=== PATIENT | male | born 1925 | race Caucasian/White ===

== ENCOUNTER 2016-02-23 11:07 | Observation (INO) | payer OTHER ==
[~2016-02-23] VITALS: Ht 172.7 cm; Wt 61.1 kg
[2016-02-23] MEDS ORDERED: SOD CHLORIDE 0.9% 1,000 ML IV STA (11:17)
[2016-02-23] MEDS ORDERED: ONDANSETRON 4 MG INJ IV STA (11:21)
[2016-02-23] MEDS ORDERED: morphine 2 MG INJ IV ONE (11:30)
--- NOTE | 2016-02-23 11:54 | RADRPT ---
PROCEDURE: US Lower extremity Venous. CLINICAL INDICATION: Left leg pain TECHNIQUE: Multiple sonographic images of the left lower extremity deep venous system was obtained utilizing grayscale, color-flow, compressive sonography and doppler imaging with augmentation. The images were reviewed on a PACS workstation. COMPARISON: None. FINDINGS: There is normal compressibility and flow within the left common femoral, superficial femoral, potter or ceramic artist ior tibial, peroneal and popliteal veins. There is a heterogeneous 4.5 x 1.5 x 2.4 cm structure in the popliteal fossa. There are irregular e chogenic borders and is cystic center. RPTAT: AA IMPRESSION: No sonographic evidence for deep venous thrombosis. Complex solid and cystic mass in the left popliteal fossa. Further evaluation with a CT with contra st is recommended. .Ed Ellis MD, Date Time Electronically viewed and signed by .Ed Ellis MD, MD on 02/23/2016 11:54 .S/
--- NOTE | 2016-02-23 12:10 | RADRPT ---
PROCEDURE: CT Brain without. CLINICAL INDICATION: Altered mental status. TECHNIQUE: A CT of the brain was performed on multidetector high-resolution CT scanner utilizing a xial sections from the skull base through the vertex without contrast. The scan was reviewed in sof t tissue brain and high frequency resolution bone algorithm windows. Images were reviewed on a high -resolution PACS workstation. One or more the following does reduction techniques were utilized: Aut omated exposure control, adjustment of the mA/ or kV according to patient's size, or use of iterativ e reconstruction technique. The exam CTDI = 44.90 mGy and the DLP = 720.23 mGy-cm. COMPARISON: None available. FINDINGS: The ventricles and sulci are mildly to moderately prominent indicative of volume loss. There is no i ntracranial hemorrhage, mass effect or midline shift. No abnormal intra-axial or extra-axial fluid collections are seen. The gomez/white matter differentiation is preserved. There are mild to moderate scattered foci of hypoattenuation in the white matter, which are nonspeci fic in etiology but likely reflect chronic small vessel ischemic changes. There are mild to moderat e intracranial vascular calcifications consistent with atherosclerosis. The visualized paranasal sin uses are essentially clear. IMPRESSION: 1. No acute intracranial hemorrhage, transcortical infarction or mass effect. 2. Mild to moderate intracranial atherosclerosis and chronic small vessel ischemic changes. 3. Mild to moderate generalized cerebral volume loss. RPTAT: HH .Carlos Jolley MD, MD Date Time Electronically viewed and signed by .Carlos Jolley MD, MD on 02/23/2016 12:10 .N/
[2016-02-23 12:27] LABS: ALBUMIN 3.6 g/dl (3.3-4.9)
[2016-02-23 12:28] LABS: POTASSIUM 4.1 mmol/L (3.5-5.1)
[2016-02-23 12:30] LABS: ALBUMIN/GLOBULIN RATIO 1.12; BILIRUBIN,INDIRECT 0.4 mg/dl (0-1.1); BILIRUBIN,TOTAL 0.4 mg/dl (0.2-1.3); CREATININE 1.08 mg/dl (0.61-1.24); TOTAL PROTEIN 6.8 g/dl (6.1-8.1)
[2016-02-23 12:31] LABS: CALCIUM 9.2 mg/dl (8.4-10.2)
[2016-02-23 12:43] LABS: TROPONIN-I 0.026 ng/ml (0.00-0.12)
[2016-02-23 12:50] LABS: BASOPHILS % 0.5 % (0.0-2.0); CONDITION 1; EOSINOPHILS # 0.1 10^3/ul (0.0-0.5); EOSINOPHILS % 2.1 % (0.0-7.0); HEMATOCRIT 39.1 % (42.0-52.0); HEMOGLOBIN 13.2 g/dl (14.0-18.0); LYMPHOCYTES # 0.6 10^3/ul (0.8-2.9); LYMPHOCYTES % 14.1 % (15.0-51.0); MEAN CORPUSCULAR HEMOGLOBIN 30.8 pg (29.0-33.0); MEAN CORPUSCULAR HGB CONC 33.8 g/dl (32.0-37.0); MEAN PLATELET VOLUME 7.6 fl (7.4-10.4); MONOCYTE # 0.4 10^3/ul (0.3-0.9); MONOCYTES % 9.1 % (0.0-11.0); NEUTROPHIL # 3.3 10^3/ul (1.6-7.5); NEUTROPHILS % 74.2 % (39.0-77.0); PLATELET COUNT 207 10^3/UL (140-440); RED BLOOD COUNT 4.29 10^6/ul (4.70-6.10); RED CELL DISTRIBUTION WIDTH 13.6 % (11.5-14.5); UNCORRECTED WBC 4.5 10^3/ul (4.8-10.8); WHITE BLOOD COUNT 4.5 10^3/ul (4.8-10.8)
[2016-02-23] MEDS ORDERED: IODIXANOL LOCM 100 ML BTL ONE (13:27)
[2016-02-23] MEDS ORDERED: SOD CHLORIDE 0.9% 100 ML ONE (13:27)
[2016-02-23 13:42] LABS: ADD UMIC NO; URINE BILIRUBIN (Dip) NEGATIVE (NEGATIVE); URINE BLOOD (Dip) NEGATIVE (NEGATIVE); URINE COLOR LT. YELLOW (YELLOW); URINE GLUCOSE (Dip) NEGATIVE (NEGATIVE); URINE KETONES (Dip) NEGATIVE (NEGATIVE); URINE LEUKOCYTE ESTERASE (Dip) NEGATIVE (NEGATIVE); URINE NITRITE (Dip) NEGATIVE (NEGATIVE); URINE TOTAL PROTEIN (Dip) NEGATIVE (NEGATIVE); URINE UROBILINOGEN (Dip) 0.2 E.U./dL (0.1-1.0)
--- NOTE | 2016-02-23 13:42 | ERA ---
ER Documentation Chief Complaint Date/Time DATE: 02/23/16 TIME: 13:34 Chief Complaint BROUGHT IN VIA EMS FROM SNF DUE TO LEFT LEG WEAKNESS HPI Patient is a very pleasant 89-year-old male who reports his left lower extremity being weak since last night. He reports also that he had these episodes for the left lower extremity which shake uncontrollably. He states this is never happened to him before. He says the left leg is sore and painful. He denies any trauma to the leg. He denies any fevers, swelling of the extremity, or rashes. He says he is normally ambulatory however he has been unable to bear weight on the leg secondary to pain and weakness this morning. Patient denies any headache or visual changes, chest pain, shortness of breath, fever, coughing, congestion, nausea, vomiting, or diarrhea. ROS All systems reviewed and are negative except as per history of present illness. Medications Home Meds Reported Medications Atorvastatin* (Atorvastatin*) 40 Mg Tablet, 40 MG PO QHS, #30 TAB 02/23/16 Polyvinyl Alcohol* (Polyvinyl Alcohol*) 15 Ml Drops, 2 DROP BOTH EYES Q4 Y for WHEEZING AND SOB, EA 02/23/16 Amlodipine Besylate* (Amlodipine Besylate*) 2.5 Mg Tablet, 2.5 MG PO DAILY, #30 TAB 02/23/16 Alendronate Sodium* (Alendronate Sodium*) 35 Mg Tablet, 35 MG PO Q7D, #4 TAB 02/23/16 Albuterol Sulfate* (Proair HFA*) 8.5 Gm Hfa.aer.ad, 2 PUFF INH DAILY Y for WHEEZING AND SOB, #1 INHALER 02/23/16 Aflibercept (EYLEA) 2 Mg/0.05 Ml Vial, 2 MG IO Q28 DAYS, VIAL 02/23/16 Acetaminophen* (Acetaminophen*) 650 Mg Tablet, 650 MG PO Q6H Y for PAIN AND OR ELEVATED TEMP, #30 TAB 02/23/16 Allergies Allergies: Coded Allergies: No Known Allergy (Unverified , 02/23/16) PMhx/Soc Medical and Surgical Hx: Unable to obtain Hx Cardiac Disorders: Yes (HTN, HYPERLIPIDEMAI ) Hx Alcohol Use: Yes Hx Substance Use: No Hx Tobacco Use: No Smoking Status: Never smoker FmHx Family History: No diabetes Physical Exam Vitals Vital Signs Date Time Temp Pulse Resp B/P Pulse Ox O2 Delivery O2 Flow Rate FiO2 02/23/16 13:00 98.2 65 12 125/57 96 Room Air 02/23/16 12:15 98.5 58 18 129/53 98 Room Air 02/23/16 11:28 Nasal Cannula 2 02/23/16 11:19 98.5 64 18 141/60 98 Physical Exam Const: Well-developed well-nourished male sitting on the bed in no acute distress Head: Atraumatic Eyes: Normal Conjunctiva ENT: Normal External Ears, Nose and Mouth. Neck: Full range of motion..~ No meningismus. Resp: Clear to auscultation bilaterally Cardio: Regular rate and rhythm, no murmurs Abd: Soft, non tender, non distended. Normal bowel sounds Skin: No petechiae or rashes Back: No midline or flank tenderness Ext: No cyanosis, or edema, patient is tender to palpation in the left posterior popliteal fossa Neur: Awake and alert oriented 3, cranial nerves 2 through 12 are intact, patient is notably weaker in the left lower extremity. Psych: Normal Mood and Affect Result Diagram: 02/23/16 1200 02/23/16 1200 Results 24 hrs Laboratory Tests Test 02/23/16 12:00 02/23/16 12:19 02/23/16 13:25 Alanine Aminotransferase (ALT/SGPT) 21IU/L Albumin 3.6g/dl Albumin/Globulin Ratio 1.12 Alkaline Phosphatase 59IU/L Anion Gap 13 Aspartate Amino Transf (AST/SGOT) 25IU/L Basophils # 0.010^3/ul Basophils % 0.5% Blood Urea Nitrogen 27mg/dl Calcium Level 9.2mg/dl Carbon Dioxide Level 33mmol/L Chloride Level 99mmol/L Creatinine 1.08mg/dl Direct Bilirubin 0.00mg/dl Eosinophils # 0.110^3/ul Eosinophils % 2.1% Globulin 3.20g/dl Glucose Level 92mg/dl Hematocrit 39.1% Hemoglobin 13.2g/dl Indirect Bilirubin 0.4mg/dl Lymphocytes # 0.610^3/ul Lymphocytes % 14.1% Mean Corpuscular Hemoglobin 30.8pg Mean Corpuscular Hemoglobin Concent 33.8g/dl Mean Corpuscular Volume 91.0fl Mean Platelet Volume 7.6fl Monocytes # 0.410^3/ul Monocytes % 9.1% Neutrophils # 3.310^3/ul Neutrophils % 74.2% Nucleated Red Blood Cells # 0.010^3/ul Nucleated Red Blood Cells % 0.0/100WBC Platelet Count 26079^3/UL Potassium Level 4.1mmol/L Red Blood Count 4.2910^6/ul Red Cell Distribution Width 13.6% Sodium Level 141mmol/L Total Bilirubin 0.4mg/dl Total Protein 6.8g/dl Troponin I 0.026ng/ml White Blood Count 4.510^3/ul Bedside Glucose 95mg/dL Urine Bilirubin NEGATIVE Urine Clarity CLEAR Urine Color LT. YELLOW Urine Glucose NEGATIVE% Urine Hemoglobin NEGATIVE Urine Ketones NEGATIVE Urine Leukocyte Esterase NEGATIVE Urine Nitrite NEGATIVE Urine Specific [place] 1.010 Urine Total Protein NEGATIVE Urine Urobilinogen 0.2 E.U./dL Urine pH 7.0 Current Medications Medications (Trade) Dose Ordered Sig/Alireza Route PRN Reason Start Time Stop Time Status Last Admin Dose Admin Sodium Chloride (NS) 1,000 ml @ 1,000 mls/hr Q1H STAT IV 02/23/16 11:17 02/23/16 12:16 DC 02/23/16 12:16 Morphine Sulfate (morphine) 2 mg ONCE ONCE IV 02/23/16 11:30 02/23/16 11:31 DC 02/23/16 12:15 Ondansetron HCl (Zofran Inj) 2 mg ONCE STAT IV 02/23/16 11:21 02/23/16 11:24 DC 02/23/16 12:15 IV Flush 10 ml 10 ml STK-MED ONCE .ROUTE 02/23/16 13:27 02/23/16 13:28 DC Sodium Chloride (NS) 100 ml @ ud STK-MED ONCE .ROUTE 02/23/16 13:27 02/23/16 13:28 DC Iodixanol (Visipaque Locm) 100 ml STK-MED ONCE .ROUTE 02/23/16 13:27 02/23/16 13:28 DC Procedures/MDM EKG shows a sinus bradycardia at a rate of 50 bpm with a first-degree AV block, he has Q waves noted in lead V1 and V2 with no acute ST-T wave changes to suggest ischemia, he also has a right bundle branch block with a left Anterior fascicular block CAT scan of his head did not demonstrate any acutely ischemic changes Ultrasound of his left lower extremity did not reveal any DVTs however it did reveal a complex cystic lesion in the left popliteal fossa which is both cystic and solid. I have ordered a CT of his left lower extremity with IV contrast to further delineate this lesion 1338: Patient has not had any more of these shaking episodes since he has been here. I am going to consult the hospitalist for admission for further evaluation for possible seizure-like activity and for obvious new onset weakness of his left lower extremity. They can further evaluate this new found lesion in his left popliteal fossa. Departure Diagnosis: Primary Impression: Acute weakness Additional Impressions: Focal and partial seizures Mass of left lower extremity Condition: CARMEN Eckert Feb 23, 2016 13:42
[2016-02-23] MEDS ORDERED: ACET-2047 PO (13:48)
[2016-02-23] MEDS ORDERED: AFLI2VIA IO (13:50)
[2016-02-23] MEDS ORDERED: AMLO2.5T78 PO (13:51)
[2016-02-23] MEDS ORDERED: ALEN35TA23 PO (13:51)
[2016-02-23] MEDS ORDERED: ALBU8.5H3 INH (13:51)
[2016-02-23] MEDS ORDERED: POLY15DR30 BOTH EYES (13:52)
[2016-02-23] MEDS ORDERED: ATOR40TA68 PO (13:53)
[2016-02-23] MEDS ORDERED: BUDE6HFA INHALATION (13:54)
[2016-02-23] MEDS ORDERED: CADE40GE TP (13:55)
[2016-02-23] MEDS ORDERED: CALC1TAB79 PO (13:55)
[2016-02-23] MEDS ORDERED: CARB15DR BOTH EYES (13:56)
[2016-02-23] MEDS ORDERED: POT473SP TP (13:57)
[2016-02-23] MEDS ORDERED: CHOL400T10 PO (13:58)
[2016-02-23] MEDS ORDERED: FOLI-49 PO (14:00)
[2016-02-23] MEDS ORDERED: GABA300C16 PO (14:00)
[2016-02-23] MEDS ORDERED: MULTI PO (14:01)
[2016-02-23] MEDS ORDERED: LOSA100T7 PO (14:01)
[2016-02-23] MEDS ORDERED: NIAC500T81 PO (14:02)
[2016-02-23] MEDS ORDERED: VIT1TABL46 PO (14:03)
[2016-02-23] MEDS ORDERED: ACETAMINOPHEN 325 MG TAB PO PRN ×2 (14:30→16:00)
[2016-02-23] MEDS ORDERED: ONDANSETRON 4 MG INJ IV PRN ×2 (14:30→16:00)
--- NOTE | 2016-02-23 14:36 | RADRPT ---
PROCEDURE: CT of the of the left knee with IV contrast CLINICAL INDICATION: Possible complex mass in the popliteal region. TECHNIQUE: CT scan of the left knee was performed after 99 cc of Omnipaque 320 IV contrast was adm inistered. Coronal and sagittal reformatted images were obtained from the axial source images. imag es. Use of iterative reconstruction technique was employed. images. The calculated radiation dose me asures 144.37 mGy centimeters. The CTDI measures 4.23 mGy. Images were reviewed on a high-resolution PACS workstation. COMPARISON: None. FINDINGS: Osseous structures: There is no acute osseous abnormality or evidence of fracture. There is severe medial and lateral femorotibial compartment with subchondral sclerosis, cystic change and bulky ost eophyte formation. There is remodelling of the tibial plateau margins more pronounced laterally. T here is at least moderate narrowing and marginal productive change at the patellofemoral compartment . Soft tissues: There is a suprapatellar joint effusion with calcific and ossific bodies. There is a lso a popliteal cyst with synovial thickening as well as calcific and ossific bodies, likely correla ting with a popliteal finding on the prior ultrasound. There is chondrocalcinosis in the region of the menisci. Atherosclerotic vascular calcifications are present. IMPRESSION: 1. Tricompartmental arthrosis with severe arthrosis seen at the medial and lateral femorotibial com partments. 2. Suprapatellar joint effusion with calcific and ossific bodies. 3. Popliteal cyst with synovial thickening as well as an ossific body within it, likely correlating with the popliteal "mass" seen on the prior ultrasound. 4. No acute osseous abnormality. 5. No evidence for neoplasm at the knee. RPTAT: RR .Renato Martínez MD, MD Date Time Electronically viewed and signed by .Renato Martínez MD, MD on 02/23/2016 14:35 .d/
[2016-02-23 16:00] VITALS: TEMP 98.7
[2016-02-23] MEDS ORDERED: DOCUSATE SODIUM 100 MG CAP PO PRN (16:00)
[2016-02-23] MEDS ORDERED: CARBOXYMETHYLCELLULOSE 0.5% 0.1 ML OPH BOTH EYES PRN (16:00)
[2016-02-23] MEDS ORDERED: BISACODYL 10 MG SUPP PR PRN (16:00)
[2016-02-23] MEDS ORDERED: ALBUTEROL HFA 8 GM INHALER INH PRN (16:00)
[2016-02-23] MEDS ORDERED: ARTIFICIAL TEARS 15 ML OPH BOTH EYES PRN (16:00)
[2016-02-23] MEDS ORDERED: NACL 0.9% 3 ML SYG IV SCH (16:00)
[2016-02-23] MEDS ORDERED: MAGNESIUM HYDROXIDE 30ML CUP PO PRN (16:00)
[2016-02-23] MEDS ORDERED: NITROGLYCERIN (SL) 0.4 MG TAB SL PRN (16:00)
--- NOTE | 2016-02-23 17:58 | RADRPT ---
PROCEDURE: MR Brain without contrast. CLINICAL INDICATION: Neurologic deficit, leg pain TECHNIQUE: An MRI of the brain was performed on a high-resolution MR scanner utilizing the followi ng sequences: Sagittal and axial T1 weighted, axial T2 weighted, axial FLAIR, coronal GRE, and axial diffusion weighted with ADC mapping. Images were reviewed high-resolution PACS workstation. No con trast was administered. COMPARISON: Correlation CT brain today FINDINGS: No acute parenchymal hemorrhage, mass effect, or midline shift. No definite diffusion restriction to suggest recent infarct. Scattered subcortical, deep, and periventricular white matter T2-weighted/F LAIR hyperintensities are consistent with mild microvascular ischemic disease. No suspicious parenchymal hypointense signal abnormalities are seen on the GRE images to suggest the presence of blood degradation products. The ventricles are stable size. Mild to moderate volume loss noted. Normal flow voids are visible in the proximal intracranial arteries suggesting their patency. No significant opacification of the paranasal sinuses or mastoids. IMPRESSION: No acute intracranial abnormality identified. No evidence of recent infarct. Mild chronic microvascular disease and mild to moderate volume loss. RPTAT: AA .Ney Rockwell MD, MD Date Time Electronically viewed and signed by .Ney Rockwell MD, on 02/23/2016 17:58 .T/
[2016-02-23 18:20] VITALS: BP 187/79; PULSE 68; RESP 20
[2016-02-23 18:30] VITALS: PULSE 64
[2016-02-23] MEDS: HYDROCODONE/APAP (5/325) TAB PO PRN (18:30)
[2016-02-23 18:39] VITALS: Ht 172.7 cm; Wt 61.1 kg
[2016-02-23] MEDS ORDERED: CYCLOBENZAPRINE 10 MG TAB PO PRN (20:00)
[2016-02-23 20:23] VITALS: PULSE 66
[2016-02-23 20:30] VITALS: BP 131/73; RESP 18
[2016-02-23] MEDS: SALMETEROL/FLUTICASONE 250/50 INHA INH SCH (20:50)
[2016-02-23] MEDS: GABAPENTIN 300 MG CAP PO SCH (20:51)
[2016-02-23] MEDS: FAMOTIDINE 20 MG TAB PO SCH (20:51)
[2016-02-23] MEDS ORDERED: ATORVASTATIN 40 MG TAB PO SCH (21:00)
[2016-02-23] MEDS: CHOLECALCIFEROL 400 UNITS TAB PO SCH (21:16)
[2016-02-24] VITALS (12 sets, daily range): BP systolic 110–149; BP diastolic 53–87; PULSE 38–85; RESP 16–18
[2016-02-24] MEDS: HYDROCODONE/APAP (5/325) TAB PO PRN (00:24)
--- NOTE | 2016-02-24 00:43 | RADRPT ---
PROCEDURE: XR Chest. CLINICAL INDICATION: Altered mental status. TECHNIQUE: Single frontal view of the chest was obtained COMPARISON: None FINDINGS: Cardiomegaly. Atherosclerotic calcifications in the thoracic aorta. Left lung base atelectasis lj rafael airspace disease. Slight right lung base atelectasis versus airspace disease. Lungs otherwise s ubstantially clear. Linear lucencies over the right lung represent skin folds. There is no pleural effusion or pneumothorax. IMPRESSION: 1. Cardiomegaly and atherosclerotic calcifications in the thoracic aorta. 2. Left lung base atelectasis versus airspace disease. RPTAT: [facility] Physician Shaji Date Time Electronically viewed and signed by Physician Shaji on 02/24/2016 00:43 RS/
--- NOTE | 2016-02-24 06:14 | HP ---
DATE OF ADMISSION: 02/23/2016 PRIMARY CARE PHYSICIAN: VANDANA RAYMOND MD CHIEF COMPLAINT ON ADMISSION: Left lower extremity weakness and tremors, new onset. HISTORY OF PRESENTING ILLNESS: This is an 89-year-old male with history of peripheral neuropathy, h ypertension, hyperlipidemia, and severe osteoarthritis of the left knee. He was residing at a local assisted living facility and presented to the emergency department with complaints of "left lower e xtremity tremors." According to the ER physician here at [facility], the patient was noted to have a significant weakness of his left lower extremity in the ER and also was reportin g tremors from the left lower extremity which according to the ER physician were concerning for part ial seizures. Also, the patient was having knee pain and workup has been started in the ER with ramiro sanchez of possible popliteal cyst. However, there was concern for possible partial seizures and also left lower extremity weakness and concerns for possible intracranial abnormalities. CAT scan of th e brain was negative. Patient was admitted at first with Dr. Grimaldo due to insurance. He was tr ansferred to me, Dr. Wyatt. He has been admitted to telemetry. I am seeing the patient currently. He already had MRI done which was negative for any acute cerebro vascular accident. The patient is on telemetry on observation. He had a CAT scan of the left lower extremity that did show popliteal cyst and signs of severe osteoarthritis of the left knee. Now in terviewing the patient at bedside, he is reporting that he called 911 due to the fact that he was alarcon ving severe left knee pain with now spasms of the left lower extremities, uncontrolled ____last nigh t with ongoing severe pain to a point where he could not take it anymore and called 911. He has bee n having intermittent pain in his left knee for the past 2 weeks. He has been using a walker due to instability of the left knee joint. He is not safe to walk and is afraid of falling. Apparently w ith his primary care physician, they have been working on a referral to orthopedic surgery in order for him to have a left knee replacement. [facility] that [facility] is not very fond [facility]. He denies any chest pain, nausea, vomiting, fevers or chills. He denies any history of coronary artery disease or cerebrovascular accidents prior. He has a history of prostate cancer. He is status post radiation therapy and has been in remission for the past 10 years. Given the current workup which is at this point to just pointing to severe left knee osteoar thritis with some instability of the joint and muscle spasms, I have told the patient that we will o bserve him overnight since is already admitted on the floor and the plan for [facility] He will require transportation. He does have a walker at the [facility]. We will provide him with one here and we will have a physical therapy evaluation in the morning for just safety prior to discharge. [place] has been ordered for pain control. Also, Flexeril has be en added for muscle spasms. ALLERGIES: NO KNOWN ALLERGIES. PAST MEDICAL HISTORY: 1. Peripheral neuropathy. 2. Hypertension. 3. Hyperlipidemia. 4. Prostate cancer in remission for the past 10 years, status post radiation treatment. PAST SURGICAL HISTORY: 1. Status post right total knee arthroplasty, remotely. 2. Status post appendectomy as a teenager. 3. Status post excision of right hip bursa according to the patient remotely. SOCIAL HISTORY: The patient currently lives at a local assisted living facility. He quit alcohol a nd tobacco 6 years ago. He used to smoke 2 packs a day for 70 years prior to quitting. REVIEW OF SYSTEMS: As per HPI. OUTPATIENT MEDICATIONS: Include: 1. ProAir HFA 2 puffs inhaled daily as needed. 2. Amlodipine 2.5 mg daily. 3. Atorvastatin 40 mg p.o. at bedtime. 4. Losartan 100 mg p.o. daily. 5. Niacin 2000 mg daily. 6. Tylenol 650 mg p.o. q.6h. p.r.n. pain. 7. Gabapentin 300 mg p.o. t.i.d. 8. Calcium carbonate Vitamin D3 two tabs p.o. q.a.m. 9. Symbicort 2 puffs inhaled b.i.d. 10. Eyedrops. 11. Folic acid. 12. Multivitamin. 13. Vitamin B. 14. Vitamin D. 15. Alendronate 35 mg p.o. q. weekly. PHYSICAL EXAMINATION: VITAL SIGNS: Temperature is 98.0, heart rate of 64, sinus rhythm, respiratory rate 20, blood pressu re 187/79. Patient is satting 93% on room air. GENERAL: He is alert and oriented x4. He is in no acute distress. HEENT: Pupils are equally round and reactive to light. Extraocular muscles are intact. Anicteric sclerae. NECK: No JVD, no thyromegaly noted. HEART: Regular rate and rhythm. LUNGS: Clear to auscultation bilaterally. ABDOMEN: Soft, nontender, nondistended. Bowel sounds are present. EXTREMITIES: No edema, clubbing or cyanosis. NEUROLOGIC: Grossly intact. Left lower extremity at the knee joint: He does have full range of mot ion at the knee. He does have pain on flexion all the way on full flexion and full extension. He i s unsteady when he stands up, can bear weight on the left knee, but it stephanie. Otherwise his motor strength is 5/5 on the left lower extremity. Sensation is intact. LABORATORY DATA: White blood cell count 4.5, hemoglobin 13.2, hematocrit 39.1, platelet count of 20 7. Chemistry is within normal with a creatinine of 1.08. Liver function tests are within normal. Calcium 9.2. Troponin 0.026. Urinalysis is negative. EKG shows a right bundle branch block, some bifascicular blocks. Otherwise, no acute findings. RADIOLOGICAL DATA: A CAT scan of the brain is showing no acute intracranial hemorrhage, mass effect or infarction. He does have mild to moderate generalized volume loss and intracranial atherosclero sis. Brain MRI shows no acute intracranial abnormalities, no evidence of recent infarct, mild chronic al rovascular disease, mild to moderate volume loss. A Doppler of the left lower extremity shows a complex pelvic cystic mass, left popliteal fossa. CAT scan of the left lower extremity does confirm a popliteal cyst with synovial thickening as well as ossific body within it showing the chronicity of this popliteal cyst; suprapatellar joint effusio n with calcific and ossific bodies, severe arthrosis. This is all confirming severe osteoarthrosis of the right knee with cyst formation. ASSESSMENT AND PLAN: 1. This is an 89-year-old male with left lower extremity weakness reported by the ER physician idris kennedy is not the case at this point. The patient is just having severe osteoarthritis of the left knee with chronic changes at this point. He will be referred to an outpatient orthopedic surgeon for kne e replacement as the patient is fairly active and wants to remain active. There are no signs of cer ebrovascular accident or any other systemic disease at this point. Physical therapy has been ordered for evaluation for safety in the morning and the patient will be discharged back to his assisted [facility] in the morning with referral to orthopedic surgery as an outpatient. I did add [place] as needed for pain and also Flexeril as needed for muscle spasms as the patient was describing muscle spasms, especially at night. 2. Hypertension. Continue home medication. 3. Hyperlipidemia. Continue home medication. 4. Peripheral neuropathy. Continue Neurontin. 5. Prostate cancer in remission for the past 10 years, has been stable. 6. Prophylaxis. Proton pump inhibitors for GI prophylaxis. SCDs to lower extremity for DVT prophy laxis. DISPOSITION: Patient is admitted to observation with discharge planning in the morning. Outpatient referral to orthopedic surgery. Dictated By: ANAMARIA VINSON/CHANTELL Conf#: [id number] DID#: [id number]
[2016-02-24 07:43] LABS: BASOPHILS % 0.6 % (0.0-2.0); EOSINOPHILS # 0.1 10^3/ul (0.0-0.5); EOSINOPHILS % 2.3 % (0.0-7.0); HEMATOCRIT 39.6 % (42.0-52.0); LYMPHOCYTES # 0.6 10^3/ul (0.8-2.9); MEAN CORPUSCULAR HEMOGLOBIN 30.2 pg (29.0-33.0); MEAN CORPUSCULAR HGB CONC 32.8 g/dl (32.0-37.0); MEAN CORPUSCULAR VOLUME 92.1 fl (82.0-101.0); MEAN PLATELET VOLUME 7.6 fl (7.4-10.4); MONOCYTE # 0.4 10^3/ul (0.3-0.9); MONOCYTES % 10.7 % (0.0-11.0); NEUTROPHIL # 2.9 10^3/ul (1.6-7.5); NEUTROPHILS % 70.4 % (39.0-77.0); PLATELET COUNT 188 10^3/UL (140-440); RED CELL DISTRIBUTION WIDTH 14.2 % (11.5-14.5); UNCORRECTED WBC 4.1 10^3/ul (4.8-10.8); WHITE BLOOD COUNT 4.1 10^3/ul (4.8-10.8)
[2016-02-24 07:46] LABS: CONDITION 1
[2016-02-24 07:52] LABS: ALBUMIN 3.3 g/dl (3.3-4.9)
[2016-02-24 07:53] LABS: POTASSIUM 3.9 mmol/L (3.5-5.1)
[2016-02-24 07:55] LABS: BILIRUBIN,INDIRECT 0.4 mg/dl (0-1.1); BILIRUBIN,TOTAL 0.4 mg/dl (0.2-1.3); CREATININE 0.89 mg/dl (0.61-1.24)
[2016-02-24 07:56] LABS: ALBUMIN/GLOBULIN RATIO 1.06; MAGNESIUM 2.1 mg/dl (1.7-2.5); TOTAL PROTEIN 6.4 g/dl (6.1-8.1)
[2016-02-24] MEDS ORDERED: ASPIRIN 81 MG TAB PO SCH (09:00)
[2016-02-24] MEDS ORDERED: VITAMIN B COMPLEX/VIT C CAP PO SCH (09:00)
[2016-02-24] MEDS ORDERED: LOSARTAN 50 MG TAB PO SCH (09:00)
[2016-02-24] MEDS ORDERED: CALCIUM/VITAMIN D (500/200) TAB PO SCH (09:00)
[2016-02-24] MEDS ORDERED: MULTIVITAMINS THERAPEUTIC TAB PO SCH (09:00)
[2016-02-24] MEDS ORDERED: NIACIN 500 MG TAB PO SCH (09:00)
[2016-02-24] MEDS ORDERED: AMLODIPINE 2.5 MG TAB PO SCH (09:00)
[2016-02-24] MEDS ORDERED: FOLIC ACID 1 MG TAB PO SCH (09:00)
[2016-02-24] MEDS: GABAPENTIN 300 MG CAP PO SCH ×2 (09:15→12:42)
[2016-02-24] MEDS: FAMOTIDINE 20 MG TAB PO SCH (09:15)
[2016-02-24] MEDS: SALMETEROL/FLUTICASONE 250/50 INHA INH SCH (09:16)
[2016-02-24] MEDS: CHOLECALCIFEROL 400 UNITS TAB PO SCH (09:16)
--- NOTE | 2016-02-24 14:11 | DS ---
Date/Time of Note Date/Time of Note DATE: 02/24/16 TIME: 13:58 Discharge Summary Admission/Discharge Info Admit Date/Time Feb 23, 2016 at 14:02 Discharge Date/Time Feb 24, 2016 Final Diagnosis Left knee osteoarthritis Patient Condition: Good Consults None Procedures Left lower extremity Doppler Left knee CT scan Brain CT Brain MRI Hx of Present Illness 89-year-old man with a history of peripheral neuropathy, hypertension, hyperlipidemia, and severe osteoarthritis of the left knee. The past two days the pain has been much worse in his knee, waking him at night and making walking very painful. Yesterday he had tremors in that leg, along with significant weakness. He has a history of right knee replacement, with excellent relief of pain there a number of years ago. 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 He has been having intermittent pain in his left knee for the past 2 weeks, and using a walker due to instability there due to fear of falling. His primary care physician had proposed orthopedic surgery referral for possible left knee replacement. He currently resides at [facility]. No history of coronary artery disease or cerebrovascular accident, with only a history of prostate cancer status post radiation therapy in remission for ten years. ALLERGIES: NO KNOWN ALLERGIES. PAST MEDICAL HISTORY: 1. Peripheral neuropathy. 2. Hypertension. 3. Hyperlipidemia. 4. Prostate cancer in remission for the past 10 years, status post radiation treatment. PAST SURGICAL HISTORY: 1. Status post right total knee arthroplasty, remotely. 2. Status post appendectomy as a teenager. 3. Status post excision of right hip bursa according to the patient remotely. Hospital Course In the ER a concern was raised about the possibility of partial seizures. Non- contrast CT scan of the brain was negative for acute bleeding. The patient was admitted at first by Dr. Grimaldo due to insurance, then transferred to my colleague Dr. Amber Haynes. He was placed under observation on telemetry. Lab tests included white blood cell count 4.5, hemoglobin 13.2, hematocrit 39.1, platelet count of 207. Chemistry was within normal with a creatinine of 1.08. Liver function tests are within normal. Calcium 9.2. Troponin 0.026. Urinalysis is negative. EKG showed a right bundle branch block, some bifascicular blocks. Otherwise, no acute findings. Imaging included a non-contrast MRI of the brain that showed no evidence of acute cerebrovascular accident. Non-contrast CT scan of the left lower extremity showed a popliteal cyst with signs of severe osteoarthritis in all three compartments of the left knee. Physical therapy evaluation was performed this morning for safety assessment. [place] provided him with significant relief, though he commented that he had avoided narcotic use over the years due to a history of heavy alcohol use. Flexeril was also added for muscle spasm. We talked about the down-side of taking narcotics like [place], and he expressed understanding. I also suggested a trial of Voltaren 1% gel, which is very safe and can be applied up to 4x per day to the fibular articulation on the lateral side of the left knee, where all his pain localizes. PHYSICAL EXAMINATION: GENERAL: He was alert and oriented, breathing comfortably on room air. HEENT: Pupils were normal. Extraocular muscles intact. Anicteric sclerae. NECK: No JVD, no thyromegaly noted. HEART: Regular rate and rhythm. LUNGS: Clear to auscultation bilaterally. ABDOMEN: Soft, nontender, nondistended. Bowel sounds are present. EXTREMITIES: No edema, clubbing or cyanosis. He had trace warmth over the left patella, but no local tenderness. The fibular head was very prominent on the left, and he pointed to that area when localizing his pain. Any flexion of the knee was moderately to severely painful, but he had negative drawer and Te's testing of the knee. NEUROLOGIC: Alert and oriented. Conversant and articulate. Normal affect. Cranial nerves, motor and light touch sensation grossly intact. Home Meds Active Scripts Diclofenac Sodium* (Voltaren* Gel) 1% -100 Gm Gel, 2 GM TOP QID Y for Left knee pain, #1 TUB Prov:JENNIFER BOURNE P. M.D. 02/24/16 Hydrocodone Bit-Acetaminophen (Hydrocodone Bit-APAP) 5-325MG Tablet, 1 TAB PO Q12H Y for PAIN LEVEL 6-10, #60 TAB Prov:JENNIFER BOURNE. M.D. 02/24/16 Docusate Sodium* (Colace*) 100 Mg Capsule, 100 MG PO Q12H Y for CONSTIPATION for 60 Days, CAP Prov:JENNIFER BOURNE P. M.D. 02/24/16 Reported Medications Vitamin B Complex* (Vitamin B Complex*) 1 Each Tablet, 1 TAB PO DAILY, TAB 02/23/16 Niacin* (Niacin*) 500 Mg Tablet, 2000 MG PO DAILY, TAB 02/23/16 Multivitamins* (Theragran*) 1 Tab Tab, 1 TAB PO DAILY, TAB 02/23/16 Losartan Potassium* (Losartan Potassium*) 100 Mg Tablet, 100 MG PO DAILY, TAB 02/23/16 Gabapentin* (Gabapentin*) 300 Mg Capsule, 300 MG PO TID, #90 CAP 02/23/16 Folic Acid* (Folic Acid*) 1 Mg Tablet, 1 MG PO DAILY, TAB 02/23/16 Cholecalciferol* (Vitamin D*) 400 Unit Tablet, 400 UNIT PO BID, TAB 02/23/16 Pot Sorbate/Vit E/Aloe V/Urea (CARRAKLENZ DERMAL WOUND CLNSER) 473 Ml [place], 1 SPRAY TP DAILY, SPRAY 02/23/16 Carboxymethylcellulose Sodium* (Refresh Tears*) 15 Ml Drops, 1 DROP BOTH EYES Q4 Y for DRY EYES, #1 EA 02/23/16 Calcium Carbonate/Vitamin D3 ([place]co 500+D Tablet) 1 Each Tablet, 2 EACH PO QAM, TAB 02/23/16 Cadexomer Iodine (Iodosorb) 40 Gm Gel..gm., 1 APPLIC TP BID 02/23/16 Budesonide-Formoterol Fumarate* (Symbicort*) 160-4.5 Hfa.aer.ad, 2 PUFF INHALATION BID, #1 EACH 02/23/16 Atorvastatin* (Atorvastatin*) 40 Mg Tablet, 40 MG PO QHS, #30 TAB 02/23/16 Polyvinyl Alcohol* (Polyvinyl Alcohol*) 15 Ml Drops, 2 DROP BOTH EYES Q4 Y for WHEEZING AND SOB, EA 02/23/16 Amlodipine Besylate* (Amlodipine Besylate*) 2.5 Mg Tablet, 2.5 MG PO DAILY, #30 TAB 02/23/16 Alendronate Sodium* (Alendronate Sodium*) 35 Mg Tablet, 35 MG PO Q7D, #4 TAB 02/23/16 Albuterol Sulfate* (Proair HFA*) 8.5 Gm Hfa.aer.ad, 2 PUFF INH DAILY Y for WHEEZING AND SOB, #1 INHALER 02/23/16 Aflibercept (EYLEA) 2 Mg/0.05 Ml Vial, 2 MG IO Q28 DAYS, VIAL 02/23/16 Acetaminophen* (Acetaminophen*) 650 Mg Tablet, 650 MG PO Q6H Y for PAIN AND OR ELEVATED TEMP, #30 TAB 02/23/16 Discontinued Reported Medications Losartan Potassium* (Losartan Potassium*) 100 Mg Tablet, 100 MG PO DAILY, TAB 02/23/16 Follow-up Plan PCP in the next week. Will obtain orthopedic surgery referral in the next two weeks. Pending Labs Laboratory Tests Test 02/24/16 06:53 Alanine Aminotransferase (ALT/SGPT) 25IU/L (13-69) Albumin 3.3g/dl (3.3-4.9) Albumin/Globulin Ratio 1.06 Alkaline Phosphatase 57IU/L (42-121) Anion Gap 13 (8-16) Aspartate Amino Transf (AST/SGOT) 24IU/L (15-46) Basophils # 0.010^3/ul (0.0-0.1) Basophils % 0.6% (0.0-2.0) Blood Urea Nitrogen 23mg/dl (7-20) Calcium Level 9.0mg/dl (8.4-10.2) Carbon Dioxide Level 29mmol/L (21-31) Chloride Level 103mmol/L (97-110) Cholesterol Level 133mg/dl (100-200) Cholesterol/HDL Ratio 3.0RATIO Creatinine 0.89mg/dl (0.61-1.24) Direct Bilirubin 0.00mg/dl (0.00-0.20) Eosinophils # 0.110^3/ul (0.0-0.5) Eosinophils % 2.3% (0.0-7.0) Globulin 3.10g/dl (1.3-3.2) Glucose Level 66mg/dl (70-220) HDL Cholesterol 44mg/dl (31-75) Hematocrit 39.6% (42.0-52.0) Hemoglobin 13.0g/dl (14.0-18.0) Indirect Bilirubin 0.4mg/dl (0-1.1) LDL Cholesterol, Calculated 79mg/dl Lymphocytes # 0.610^3/ul (0.8-2.9) Lymphocytes % 16.0% (15.0-51.0) Magnesium Level 2.1mg/dl (1.7-2.5) Mean Corpuscular Hemoglobin 30.2pg (29.0-33.0) Mean Corpuscular Hemoglobin Concent 32.8g/dl (32.0-37.0) Mean Corpuscular Volume 92.1fl (82.0-101.0) Mean Platelet Volume 7.6fl (7.4-10.4) Monocytes # 0.410^3/ul (0.3-0.9) Monocytes % 10.7% (0.0-11.0) Neutrophils # 2.910^3/ul (1.6-7.5) Neutrophils % 70.4% (39.0-77.0) Nucleated Red Blood Cells # 0.010^3/ul (0.0-0.0) Nucleated Red Blood Cells % 0.0/100WBC (0.0-0.0) Platelet Count 73170^3/UL (140-440) Potassium Level 3.9mmol/L (3.5-5.1) Red Blood Count 4.3010^6/ul (4.70-6.10) Red Cell Distribution Width 14.2% (11.5-14.5) Sodium Level 141mmol/L (135-144) Total Bilirubin 0.4mg/dl (0.2-1.3) Total Protein 6.4g/dl (6.1-8.1) Triglycerides Level 52mg/dl (0-149) White Blood Count 4.110^3/ul (4.8-10.8) Copies To: CC: AMBER HAYNES JOHN P. M.D. Feb 24, 2016 14:09 0.010^3/ul (0.0-0.0) Nucleated Red Blood Cells % 0.0/100WBC (0.0-0.0) Platelet Count 22872^3/UL (140-440) Potassium Level 3.9mmol/L (3.5-5.1) Red Blood Count 4.3010^6/ul (4.70-6.10) Red Cell Distribution Width 14.2% (11.5-14.5) Sodium Level 141mmol/L (135-144) Total Bilirubin 0.4mg/dl (0.2-1.3) Total Protein 6.4g/dl (6.1-8.1) Triglycerides Level 52mg/dl (0-149) White Blood Count 4.110^3/ul (4.8-10.8) JENNIFER BOURNE M.D. Feb 24, 2016 14:09
[2016-02-24] MEDS ORDERED: HYDR-3498 PO (14:33)
[2016-02-24] MEDS ORDERED: DICL100G37 TOP (14:33)
[2016-02-24] MEDS ORDERED: DOCU-144 PO (14:33)
--- NOTE | 2016-02-24 14:34 | PDOCDIS ---
Discharge Instructions DIAGNOSIS Discharge Diagnosis: Severe left knee osteoarthritis CONDITION Patient Condition: Good HOME CARE INSTRUCTIONS: Diet Instructions: Reduced SodiumSpecial Diet: Cardiac ACTIVITY: Activity Restrictions: Slowly Increase Activity Activity Restrictions Comment: Fall precautions, use of a walker FOLLOW UP/APPOINTMENTS Appointments Orthopedic referral and PCP in the next two weeks JENNIFER BOURNE M.D. Feb 24, 2016 14:34
== END 2016-02-24 19:05 ==
LOC: E/R 11:07 → MS4 14:02
PROVIDERS: ADMIT Internal Medicine; ATTEND Internal Medicine
DX: M17.12 Unilateral primary osteoarthritis, left knee (principal); I10 Essential (primary) hypertension; E78.5 Hyperlipidemia, unspecified; G62.9 Polyneuropathy, unspecified; Z85.46 Personal history of malignant neoplasm of prostate
CPT/HCPCS: 70450; 70551; 71010; 73700; 80053; 80061; 81003; 82962; 83735; 84484; 85025; 93005; 93971; G0378; J2270; J2405; J7030; Q9967; 99217

== ENCOUNTER 2016-04-10 08:24 | Emergency (ER) | payer OTHER ==
[~2016-04-10] VITALS: Ht 170.2 cm; Wt 75.0 kg
[~2016-04-10 08:24] MED LIST: ACET-2047 PO; AFLI2VIA IO; ALBU8.5H3 INH; ALEN35TA23 PO; AMLO2.5T78 PO; ATOR40TA68 PO; BUDE6HFA INHALATION; CADE40GE TP; CALC1TAB79 PO; CARB15DR BOTH EYES; CHOL400T10 PO; DICL100G37 TOP; DOCU-144 PO; FOLI-49 PO; GABA300C16 PO; HYDR-3498 PO; LOSA100T7 PO; MULTI PO; NIAC500T81 PO; POLY15DR30 BOTH EYES; POT473SP TP; VIT1TABL46 PO
[2016-04-10] MEDS ORDERED: ONDANSETRON (ODT) 4 MG TAB ODT STA (08:25)
[2016-04-10] MEDS ORDERED: HYDROCODONE/APAP (10/325) TAB PO ONE (08:30)
[2016-04-10 08:34] VITALS: Ht 170.2 cm; Wt 75.0 kg
--- NOTE | 2016-04-10 09:36 | RADRPT ---
PROCEDURE: CT brain without contrast CLINICAL INDICATION: Fall, pain back of head, TECHNIQUE: CT of the brain without contrast performed on a CT scanner. One or more of the followin g dose reduction techniques were used: Automated exposure control, adjustment in mA and / or kV acco rding to patient size, use of iterative reconstructive technique. Radiation doses unavailable. COMPARISON: 02/23/2016 FINDINGS: No acute intracranial hemorrhage is identified. No extra-axial fluid collection is seen. There is no mass effect. No midline shift is identified. Ventricles and sulci are mild to moderately enlarged compatible with volume loss. There are mild areas of hypodensity in the periventricular - deep white matter which are nonspecific but suggestive of chronic small vessel ischemic changes. Dobbins-white differentiation is preserved. Atherosclerotic calcifications of the proximal intracranial arteries are noted. Osseous structures are unremarkable. Mastoid air cells and imaged paranasal sinuses grossly clear. IMPRESSION: 1. No evidence of acute intracranial pathology. 2. Mild to moderate volume loss, with mild chronic small vessel ischemic changes. RPTAT: VV .Kurt Lopes MD, MD Date Time Electronically viewed and signed by .Kurt Lopes MD, on 04/10/2016 09:35 .O/
[2016-04-10] MEDS ORDERED: DOCU-144 PO (09:47)
[2016-04-10] MEDS ORDERED: HYDR-902 PO (09:47)
--- NOTE | 2016-04-10 09:50 | RADRPT ---
PROCEDURE: Thoracic spine series CLINICAL INDICATION: Fell, pain. TECHNIQUE: AP and lateral views of the thoracic spine were obtained. COMPARISON: None. FINDINGS: Study is technically limited. There is rotoscoliosis with diffuse thoracic vertebral spondylosis pr esent. There is multilevel degenerative disk disease as well. No acute fracture or subluxation is appreciated. There is moderate tortuosity and calcification throughout the thoracic aorta. The int erpedicular distances are maintained. IMPRESSION: 1. Rotoscoliosis with multilevel degenerative disk disease and diffuse thoracic vertebral spondylosi s. 2. No definite acute fracture or subluxation identified. RPTAT:[facility] Physician Mireya Date Time Electronically viewed and signed by Physician Mireya on 04/10/2016 09:50 /
[2016-04-10 11:00] VITALS: BP 127/56; PULSE 99; RESP 18; TEMP 98
--- NOTE | 2016-04-10 12:26 | ERD ---
ER Documentation Chief Complaint Date/Time DATE: 04/10/16 TIME: 12:23 Chief Complaint BIBA FOR FALL,BACK OF THE HEAD PAIN,BACK PAIN HPI Patient is a 10-year-old male with hypertension who presents with a slip and fall. The patient was brought in by ambulance. He was walking to the bathroom at a nursing facility and slipped and hit the bathtub with the back of his head. The patient did not lose consciousness. He also has mid back pain. He has no loss of consciousness or vomiting. He takes a baby aspirin. Upon review of old medical records the patient one previous visit in February 2016. ROS All systems reviewed and are negative except as per history of present illness. Medications Home Meds Active Scripts Docusate Sodium* (Colace*) 100 Mg Capsule, 100 MG PO TID, #30 CAP Prov:MARK ROSE MD 04/10/16 Hydrocodone/Acetaminophen ([place] 10-325 Tablet) 1 Each Tablet, 1 TAB PO Q6H Y for PAIN, #7 TAB Prov:MARK ROSE MD 04/10/16 Diclofenac Sodium* (Voltaren* Gel) 1% -100 Gm Gel, 2 GM TOP QID Y for Left knee pain, #1 TUB Prov:JENNIFER BOURNE M.D. 02/24/16 Hydrocodone Bit-Acetaminophen (Hydrocodone Bit-APAP) 5-325MG Tablet, 1 TAB PO Q12H Y for PAIN LEVEL 6-10, #60 TAB Prov:JENNIFER BOURNE M.D. 02/24/16 Docusate Sodium* (Colace*) 100 Mg Capsule, 100 MG PO Q12H Y for CONSTIPATION for 60 Days, CAP Prov:JENNIFER BOURNE M.D. 02/24/16 Reported Medications Vitamin B Complex* (Vitamin B Complex*) 1 Each Tablet, 1 TAB PO DAILY, TAB 02/23/16 Niacin* (Niacin*) 500 Mg Tablet, 2000 MG PO DAILY, TAB 02/23/16 Multivitamins* (Theragran*) 1 Tab Tab, 1 TAB PO DAILY, TAB 02/23/16 Losartan Potassium* (Losartan Potassium*) 100 Mg Tablet, 100 MG PO DAILY, TAB 02/23/16 Gabapentin* (Gabapentin*) 300 Mg Capsule, 300 MG PO TID, #90 CAP 02/23/16 Folic Acid* (Folic Acid*) 1 Mg Tablet, 1 MG PO DAILY, TAB 02/23/16 Cholecalciferol* (Vitamin D*) 400 Unit Tablet, 400 UNIT PO BID, TAB 02/23/16 Pot Sorbate/Vit E/Aloe V/Urea (CARRAKLENZ DERMAL WOUND CLNSER) 473 Ml [place], 1 SPRAY TP DAILY, SPRAY 02/23/16 Carboxymethylcellulose Sodium* (Refresh Tears*) 15 Ml Drops, 1 DROP BOTH EYES Q4 Y for DRY EYES, #1 EA 02/23/16 Calcium Carbonate/Vitamin D3 (Oysco 500+D Tablet) 1 Each Tablet, 2 EACH PO QAM, TAB 02/23/16 Cadexomer Iodine (Iodosorb) 40 Gm Gel..gm., 1 APPLIC TP BID 02/23/16 Budesonide-Formoterol Fumarate* (Symbicort*) 160-4.5 Hfa.aer.ad, 2 PUFF INHALATION BID, #1 EACH 02/23/16 Atorvastatin* (Atorvastatin*) 40 Mg Tablet, 40 MG PO QHS, #30 TAB 02/23/16 Polyvinyl Alcohol* (Polyvinyl Alcohol*) 15 Ml Drops, 2 DROP BOTH EYES Q4 Y for WHEEZING AND SOB, EA 02/23/16 Amlodipine Besylate* (Amlodipine Besylate*) 2.5 Mg Tablet, 2.5 MG PO DAILY, #30 TAB 02/23/16 Alendronate Sodium* (Alendronate Sodium*) 35 Mg Tablet, 35 MG PO Q7D, #4 TAB 02/23/16 Albuterol Sulfate* (Proair HFA*) 8.5 Gm Hfa.aer.ad, 2 PUFF INH DAILY Y for WHEEZING AND SOB, #1 INHALER 02/23/16 Aflibercept (EYLEA) 2 Mg/0.05 Ml Vial, 2 MG IO Q28 DAYS, VIAL 02/23/16 Acetaminophen* (Acetaminophen*) 650 Mg Tablet, 650 MG PO Q6H Y for PAIN AND OR ELEVATED TEMP, #30 TAB 02/23/16 Allergies Allergies: Coded Allergies: No Known Allergy (Unverified , 04/10/16) PMhx/Soc History of Surgery: Yes (knee replacement, r. hip sx, appy, ) Anesthesia Reaction: No Hx Neurological Disorder: No Hx Respiratory Disorders: Yes (tb test +) Hx Cardiac Disorders: Yes (htn, high chol, ) Hx Psychiatric Problems: No Hx Miscellaneous Medical Probl: No Hx Alcohol Use: No Hx Substance Use: No Hx Tobacco Use: No Smoking Status: Former smoker FmHx Family History: No diabetes Physical Exam Vitals Vital Signs Date Time Temp Pulse Resp B/P Pulse Ox O2 Delivery O2 Flow Rate FiO2 04/10/16 11:00 98.0 99 18 127/56 98 Room Air 04/10/16 08:34 98.1 91 18 166/85 98 Physical Exam Const: No acute distress Head: Occipital lobe hematoma Eyes: Normal Conjunctiva ENT: Normal External Ears, Nose and Mouth. Neck: Full range of motion..~ No meningismus. Resp: Clear to auscultation bilaterally Cardio: Regular rate and rhythm, no murmurs Abd: Soft, non tender, non distended. Normal bowel sounds Skin: No petechiae or rashes Back: Midline tenderness in the mid thoracic spine without step-off or deformity Ext: No cyanosis, or edema Neur: Awake and alert Psych: Normal Mood and Affect Results 24 hrs Current Medications Medications (Trade) Dose Ordered Sig/Alireza Route PRN Reason Start Time Stop Time Status Last Admin Dose Admin Acetaminophen/ Hydrocodone Bitart ([place] (10/325)) 1 tab ONCE ONCE PO 04/10/16 08:30 04/10/16 08:31 DC 04/10/16 08:38 Ondansetron HCl (Zofran Odt) 4 mg ONCE STAT ODT 04/10/16 08:25 04/10/16 08:26 DC 04/10/16 08:38 Procedures/MDM CT head negative for intracranial hemorrhage or skull fracture per radiology. X-ray T-Spine 2V Interpreted by me: Bones: Compression fracture Joints: No dislocation Foreign body: None Patient is a 89-year-old male with hypertension who presents after a slip and fall. CT scan was negative. I believe the x-ray shows a compression fracture which is likely the cause of his back pain. The patient was given [place] for pain. He will be given a prescription for [place] and Colace. The patient should follow-up with his primary doctor within 24-48 hours and can return if symptoms worsen. The patient understands the plan and is okay for discharge at this time. I believe he has concussion but no intracranial hemorrhage or mass. The fall was a slip and fall and not a syncope. Departure Diagnosis: Primary Impression: Compression fracture Additional Impressions: Concussion Encounter type: initial encounter Loss of consciousness presence/duration: without LOC Qualified Code: S06.0X0A - Concussion, without loss of consciousness, initial encounter Fall Encounter type: initial encounter Qualified Code: W19.XXXA - Fall, initial encounter Condition: Fair Patient Instructions: After a Concussion, Back Fracture (Compression Fracture) , Fall, Mechanical Referrals: Your doctor at [facility] Additional Instructions: Call your primary care doctor TOMORROW for an appointment during the next 1-2 days.See the doctor sooner or return here if your condition worsens before your appointment time. MARK ROSE MD Apr 10, 2016 12:26
== END 2016-04-10 11:48 | disposition home or self-care (01) ==
LOC: E/R 08:24
DX: S22.000A Wedge compression fracture of unspecified thoracic vertebra, initial encounter for closed fracture (principal); S06.0X0A Concussion without loss of consciousness, initial encounter; I10 Essential (primary) hypertension; R40.2142 Coma scale, eyes open, spontaneous, at arrival to emergency department; R40.2362 Coma scale, best motor response, obeys commands, at arrival to emergency department; R40.2252 Coma scale, best verbal response, oriented, at arrival to emergency department; W01.198A Fall on same level from slipping, tripping and stumbling with subsequent striking against other object, initial encounter; Y92.121 Bathroom in nursing home as the place of occurrence of the external cause; Z87.891 Personal history of nicotine dependence; Z96.659 Presence of unspecified artificial knee joint
CPT/HCPCS: 70450; 72072

== ENCOUNTER 2016-06-27 21:47 | Emergency (ER) | payer OTHER ==
[~2016-06-27] VITALS: Ht 172.7 cm; Wt 68.2 kg
[~2016-06-27 21:47] MED LIST changes: +HYDR-902 PO
[2016-06-27 21:48] VITALS: Ht 172.7 cm; Wt 68.2 kg
--- NOTE | 2016-06-27 21:52 | ERA ---
ER Documentation Chief Complaint Date/Time DATE: 06/27/16 TIME: 21:51 Chief Complaint Rt hip & rt elbow pain r/t ground level fall,denies BACA/dizziness HPI The patient is a 89-year-old male, presenting to the ER because he had a mechanical fall prior to arrival, he complains of right elbow, right hip pain. He denies syncope, near syncope, neck pain, chest pain, dyspnea, abdominal pain , vomiting, dysuria, diarrhea. He does not smoke or drink Past medical history: Hypertension, dyslipidemia Past surgical history: Appendectomy, right knee hemiarthroplasty ROS All systems reviewed and are negative except as per history of present illness. Medications Home Meds Reported Medications Aspirin (Aspirin) 81 Mg Tablet.dr, 81 MG PO DAILY 06/27/16 Acetaminophen* (Acetaminophen*) 325 Mg Tablet, 650 MG PO TID Y for PAIN AND OR ELEVATED TEMP, #30 TAB 06/27/16 Vitamin B Complex* (Vitamin B Complex*) 1 Each Tablet, 1 TAB PO DAILY, TAB 02/23/16 Niacin* (Niacin*) 500 Mg Tablet, 2000 MG PO QPM, TAB 02/23/16 Multivitamins* (Theragran*) 1 Tab Tab, 1 TAB PO BID, TAB 02/23/16 Losartan Potassium* (Losartan Potassium*) 100 Mg Tablet, 100 MG PO DAILY, TAB 02/23/16 Gabapentin* (Gabapentin*) 300 Mg Capsule, 900 MG PO TID, #90 CAP 02/23/16 Folic Acid* (Folic Acid*) 1 Mg Tablet, 1 MG PO DAILY, TAB 02/23/16 Cholecalciferol* (Vitamin D*) 400 Unit Tablet, 800 UNIT PO Q24H, TAB 02/23/16 Atorvastatin* (Atorvastatin*) 40 Mg Tablet, 40 MG PO QHS, #30 TAB 02/23/16 Amlodipine Besylate* (Amlodipine Besylate*) 2.5 Mg Tablet, 2.5 MG PO DAILY, #30 TAB 02/23/16 Aflibercept (EYLEA) 2 Mg/0.05 Ml Vial, 2 MG IO Q28 DAYS, VIAL 02/23/16 Discontinued Reported Medications Acetylcysteine* (Mucomyst*) 4 Ml Soln, 1200 MG PO BID, EA 06/27/16 Pot Sorbate/Vit E/Aloe V/Urea (CARRAKLENZ DERMAL WOUND CLNSER) 473 Ml [place], 1 SPRAY TP DAILY, SPRAY 02/23/16 Carboxymethylcellulose Sodium* (Refresh Tears*) 15 Ml Drops, 1 DROP BOTH EYES Q4 Y for DRY EYES, #1 EA 02/23/16 Calcium Carbonate/Vitamin D3 (Oysco 500+D Tablet) 1 Each Tablet, 2 EACH PO QAM, TAB 02/23/16 Cadexomer Iodine (Iodosorb) 40 Gm Gel..gm., 1 APPLIC TP BID 02/23/16 Budesonide-Formoterol Fumarate* (Symbicort*) 160-4.5 Hfa.aer.ad, 2 PUFF INHALATION BID, #1 EACH 02/23/16 Polyvinyl Alcohol* (Polyvinyl Alcohol*) 15 Ml Drops, 2 DROP BOTH EYES Q4 Y for WHEEZING AND SOB, EA 02/23/16 Alendronate Sodium* (Alendronate Sodium*) 35 Mg Tablet, 35 MG PO Q7D, #4 TAB 02/23/16 Albuterol Sulfate* (Proair HFA*) 8.5 Gm Hfa.aer.ad, 2 PUFF INH DAILY Y for WHEEZING AND SOB, #1 INHALER 02/23/16 Acetaminophen* (Acetaminophen*) 650 Mg Tablet, 650 MG PO Q6H Y for PAIN AND OR ELEVATED TEMP, #30 TAB 02/23/16 Discontinued Scripts Docusate Sodium* (Colace*) 100 Mg Capsule, 100 MG PO TID, #30 CAP Prov:MARK ROSE MD 04/10/16 Hydrocodone/Acetaminophen ([place] 10-325 Tablet) 1 Each Tablet, 1 TAB PO Q6H Y for PAIN, #7 TAB Prov:MARK ROSE MD 04/10/16 Diclofenac Sodium* (Voltaren* Gel) 1% -100 Gm Gel, 2 GM TOP QID Y for Left knee pain, #1 TUB Prov:JENNIFER BOURNE M.D. 02/24/16 Hydrocodone Bit-Acetaminophen (Hydrocodone Bit-APAP) 5-325MG Tablet, 1 TAB PO Q12H Y for PAIN LEVEL 6-10, #60 TAB Prov:JENNIFER BOURNE M.D. 02/24/16 Docusate Sodium* (Colace*) 100 Mg Capsule, 100 MG PO Q12H Y for CONSTIPATION for 60 Days, CAP Prov:JENNIFER BOURNE M.D. 02/24/16 Allergies Allergies: Coded Allergies: No Known Allergy (Unverified , 06/27/16) PMhx/Soc History of Surgery: Yes (knee replacement, r. hip sx, appy, ) Anesthesia Reaction: No Hx Neurological Disorder: No Hx Respiratory Disorders: Yes (tb test +) Hx Cardiac Disorders: Yes (htn, high chol, ) Hx Psychiatric Problems: No Hx Miscellaneous Medical Probl: No Hx Alcohol Use: No Hx Substance Use: No Hx Tobacco Use: No Physical Exam Vitals Vital Signs Date Time Temp Pulse Resp B/P Pulse Ox O2 Delivery O2 Flow Rate FiO2 06/27/16 21:48 97.6 67 18 181/73 97 Physical Exam Const: No acute distress. Head: Atraumatic. Eyes: Normal Conjunctiva. ENT: Normal External Ears, Nose and Mouth. Neck: Full range of motion. No meningismus. Resp: Clear to auscultation bilaterally. Cardio: Regular rate and rhythm, no murmurs. Abd: Soft, non distended, normal bowel sounds, non tender. Skin: No petechiae or rashes. Back: No midline or flank tenderness. Ext: No cyanosis, or edema. Right elbow with small laceration, has full range of motion. Right hip is with minimal vague tenderness, no laceration Neur: Awake and alert. No focal deficit Psych: Normal Mood and Affect. Results 24 hrs Current Medications Medications (Trade) Dose Ordered Sig/Alireza Route PRN Reason Start Time Stop Time Status Last Admin Dose Admin Diphtheria/ Tetanus/Acell Pertussis (Adacel) 0.5 ml ONCE ONCE IM* 06/27/16 22:30 06/27/16 22:31 DC 06/27/16 22:55 Procedures/[place] [id number] Radiology Main Line: [phone] DIAGNOSTIC IMAGING REPORT Patient: JANICE EAGLE : 1925 Age: 89 Sex: M MR #: [id number] DOS: 06/27/162206 Ordering MD: VANDANA RAYMOND MD Location: E/R Room/Bed: PROCEDURE: XR Hip. CLINICAL INDICATION: Post traumatic right hip pain TECHNIQUE: AP and frog lateral views of the right hip were performed. COMPARISON: None. FINDINGS: Demineralization is suggested. No fracture or osseous lesion is identified. Moderate to severe narrowing of the right hip joint is present, the femoral head is normal in contour. The soft tissues are unremarkable. Atherosclerotic calcification of the femoral artery system is present. RPTAT:HJJR IMPRESSION: 1. Right hip osteoarthrosis without evidence of fracture or dislocation. 2. Demineralization. 3. Atherosclerotic calcification of the femoral artery system. Physician Thao Date Time Electronically viewed and signed by Physician Thao on 06/27/2016 23:46 JR/ CC: VANDANA RAYMOND MD [place] [id number] Radiology Main Line: [phone] DIAGNOSTIC IMAGING REPORT Patient: JANICE EAGLE : 1925 Age: 89 Sex: M MR #: [id number] DOS: 06/27/162206 Ordering MD: VANDANA RAYMOND MD Location: E/R Room/Bed: PROCEDURE: XR Right Elbow. CLINICAL INDICATION: Right elbow pain status post trauma. TECHNIQUE: AP, lateral and oblique views of the right elbow performed. COMPARISON: None. FINDINGS: There is normal mineralization and alignment. No fracture or osseous lesion is identified. There is no significant joint space narrowing. The soft tissues are unremarkable. IMPRESSION: Unremarkable examination. RPTAT: [facility] Physician Shaji Date Time Electronically viewed and signed by Physician Shaji on 06/27/2016 23:42 RS/ CC: VANDANA RAYMOND MD [place] [id number] Radiology Main Line: [phone] DIAGNOSTIC IMAGING REPORT Patient: JANICE EAGLE : 1925 Age: 89 Sex: M [id number] DOS: 06/27/162206 Ordering MD: VANDANA RAYMOND MD Location: E/R Room/Bed: PROCEDURE: CT cervical spine without contrast. CLINICAL INDICATION: Neck pain TECHNIQUE: CT of the cervical spine without contrast was performed. Axial images were obtained through the cervical spine and reformatted at 1.25 mm slice thickness. Coronal and sagittal images were reformatted. Exam CTDIvol = 19.01 mGy and DLP = 431.05 mGy-cm. COMPARISON: None available. FINDINGS: Vertebral bodies: Stature and lordosis are preserved. Diffuse demineralization likely reflects osteoporosis. Scattered small rounded lucencies throughout the vertebral bodies are believed to be related to degenerative changes as most of them are adjacent to the endplates. Severe narrowing of the predental space is present without erosion, some calcification of the alar ligaments is seen. The C1 ring is intact. The occipital condyles are normal in location Central canal and cervical spinal cord: No abnormal density within the spinal cord is evident and no intraspinal masses are delineated. C2-3: Moderate degenerative disk narrowing with a small osteophyte and disk complex not causing significant central stenosis. Moderate to severe bilateral facet arthropathy is present. The uncovertebral joints and foramina are unremarkable. C3-4: Moderate to severe degenerative disk narrowing with vacuum disk phenomenon and a small osteophyte and disk complex not causing significant central stenosis. Severe right and moderate left facet arthropathy is present. Uncovertebral hypertrophy contributes to moderate right foraminal stenosis and mild left foraminal narrowing. C4-5: Severe degenerative disk narrowing is present without significant disk complex or central stenosis. Severe right and moderate left facet arthropathy is present. Uncovertebral hypertrophy contributes to moderate to severe right foraminal stenosis the left foramen is patent. C5-6: Severe degenerative disk narrowing with mild retrolisthesis and a small osteophyte and disk complex not causing central stenosis. Moderate to severe bilateral facet arthropathy is present. Uncovertebral hypertrophy causes severe bilateral foraminal stenosis. C6-7: Severe degenerative disk narrowing with extensive endplate degenerative cyst formation. Small osteophyte and disk complex is present without central stenosis. Moderate to severe bilateral facet arthropathy is present. Uncovertebral hypertrophy contributes to moderate to severe bilateral foraminal stenosis slightly worse on the left. C7-T1: Moderate degenerative disk narrowing without disk protrusion or central stenosis. Moderate to severe bilateral facet arthropathy slightly worse on the left. The uncovertebral joints and foramina are unremarkable. The visualized thoracic levels: Moderate degenerative disk narrowing and endplate subcortical cyst formation at the T1-2 and T2-3 without disk abnormality of significance or obvious stenosis Non spine related findings: Severe centrilobular emphysema of the visualized upper lungs is present. Note is made of extensive arteriosclerotic calcification RPTAT:HJJR IMPRESSION: 1. Osteoporosis with scattered small areas of rounded lucency involving the vertebral bodies believed to reflect degenerative subcortical cystic changes because of the predominant location adjacent to the disk spaces, lytic metastatic disease is a differential diagnostic possibility in the proper clinical setting. 2. No evidence of fracture or subluxation. 3. Multilevel degenerative disk disease most severe at C4-5, C5-6 and C6-7 without significant central canal stenosis at any level. 4. Significant facet arthropathy and uncovertebral hypertrophy throughout the cervical spine with foraminal stenosis greatest bilaterally at C5-6. Physician Thao Date Time Electronically viewed and signed by Physician Thao on 06/27/2016 22:53 JR/ CC: VANDANA RAYMOND MD [place] [id number] Radiology Main Line: [phone] DIAGNOSTIC IMAGING REPORT Patient: JANICE EAGLE : 1925 Age: 89 Sex: M MR #: [id number] DOS: 06/27/162206 Ordering MD: VANDANA RAYMOND MD Location: E/R Room/Bed: PROCEDURE: CT brain without contrast CLINICAL INDICATION: Headaches TECHNIQUE: A CT of the brain was performed utilizing axial sections from the skull base through the vertex without contrast. Sagittal and coronal images were also reformatted. The exam CTDIvol = 42.93 mGy and DLP = 720.23 mGy-cm. COMPARISON: 04/10/2016 FINDINGS: No acute intracranial hemorrhage is identified. There is no mass effect or midline shift. No extra-axial fluid collection is seen. The ventricles and sulci are normal in size and configuration for the patient's provided age of 89 years consistent with advanced generalized atrophy. Diffuse low attenuation of the subcortical and periventricular white matter is again noted, nonspecific but likely chronic small vessel ischemic sequela. Dobbins-white differentiation is preserved with no findings to suggest an acute ischemic infarct. The fourth ventricle is midline and there is no density alteration within the jose or cerebellum. The osseous structures are demineralized but otherwise unremarkable. Atherosclerotic calcification of the cavernous internal carotid arteries is present The mastoid air cells and visualized paranasal sinuses are clear. RPTAT:HJJR IMPRESSION: Generalized cerebral atrophy appropriate for the patient's provided age with chronic small vessel ischemic white matter disease but no evidence of acute intracranial abnormality or findings to explain the patient's provided history. No interval change from 04/10/2016. Physician Thao Date Time Electronically viewed and signed by Physician Thao on 06/27/2016 22:46 JR/ CC: VANDANA RAYMOND MD MEDICAL MAKING DECISION: The patient is a 89-year-old male, presenting with acute right elbow contusion, acute right elbow laceration, acute right hip contusion. The differential diagnoses considered include but are not limited to fracture, contusion, sprain, internal derangement The right elbow small laceration was closed with Steri-Strips with no difficulty. He was treated with Tdap Departure Diagnosis: Primary Impression: Contusion of right elbow Additional Impressions: Laceration of elbow, right Contusion of hip, right Condition: Good Comments I discussed the findings with the patient. I advised the patient to follow-up with the primary physician in about 1-2 days, sooner if needed and return if any concern. VANDANA RAYMOND MD June 27, 2016 21:52
[2016-06-27] MEDS ORDERED: DIPHTH/TET/ACEL PERTUSS (ADULT) 0.5 ML VIAL IM* ONE (22:30)
[2016-06-27] MEDS ORDERED: ACET325T45 PO (22:33)
[2016-06-27] MEDS ORDERED: ASPI-664 PO (22:36)
[2016-06-27] MEDS ORDERED: MUCO4 PO (22:44)
--- NOTE | 2016-06-27 22:47 | RADRPT ---
PROCEDURE: CT brain without contrast CLINICAL INDICATION: Headaches TECHNIQUE: A CT of the brain was performed utilizing axial sections from the skull base through th e vertex without contrast. Sagittal and coronal images were also reformatted. The exam CTDIvol = 42. 93 mGy and DLP = 720.23 mGy-cm. COMPARISON: 04/10/2016 FINDINGS: No acute intracranial hemorrhage is identified. There is no mass effect or midline shift. No extra -axial fluid collection is seen. The ventricles and sulci are normal in size and configuration for the patient's provided age of 89 years consistent with advanced generalized atrophy. Diffuse low at tenuation of the subcortical and periventricular white matter is again noted, nonspecific but likely chronic small vessel ischemic sequela. Dobbins-white differentiation is preserved with no findings to suggest an acute ischemic infarct. The fourth ventricle is midline and there is no density alteration within the jose or cerebellum. The osseous structures are demineralized but otherwise unremarkable. Atherosclerotic calcification o f the cavernous internal carotid arteries is present The mastoid air cells and visualized paranasal sinuses are clear. RPTAT:HJJR IMPRESSION: Generalized cerebral atrophy appropriate for the patient's provided age with chronic small vessel is chemic white matter disease but no evidence of acute intracranial abnormality or findings to explain the patient's provided history. No interval change from 04/10/2016. Physician Thao Date Time Electronically viewed and signed by Physician Thao on 06/27/2016 22:46 /
--- NOTE | 2016-06-27 22:53 | RADRPT ---
PROCEDURE: CT cervical spine without contrast. CLINICAL INDICATION: Neck pain TECHNIQUE: CT of the cervical spine without contrast was performed. Axial images were obtained th rough the cervical spine and reformatted at 1.25 mm slice thickness. Coronal and sagittal images wer e reformatted. Exam CTDIvol = 19.01 mGy and DLP = 431.05 mGy-cm. COMPARISON: None available. FINDINGS: Vertebral bodies: Stature and lordosis are preserved. Diffuse demineralization likely reflects oste oporosis. Scattered small rounded lucencies throughout the vertebral bodies are believed to be rela naty to degenerative changes as most of them are adjacent to the endplates. Severe narrowing of the p redental space is present without erosion, some calcification of the alar ligaments is seen. The C1 ring is intact. The occipital condyles are normal in location Central canal and cervical spinal cord: No abnormal density within the spinal cord is evident and no intraspinal masses are delineated. C2-3: Moderate degenerative disk narrowing with a small osteophyte and disk complex not causing sign ificant central stenosis. Moderate to severe bilateral facet arthropathy is present. The uncoverteb ral joints and foramina are unremarkable. C3-4: Moderate to severe degenerative disk narrowing with vacuum disk phenomenon and a small osteop hyte and disk complex not causing significant central stenosis. Severe right and moderate left face t arthropathy is present. Uncovertebral hypertrophy contributes to moderate right foraminal stenosis and mild left foraminal narrowing. C4-5: Severe degenerative disk narrowing is present without significant disk complex or central yen nosis. Severe right and moderate left facet arthropathy is present. Uncovertebral hypertrophy contr ibutes to moderate to severe right foraminal stenosis the left foramen is patent. C5-6: Severe degenerative disk narrowing with mild retrolisthesis and a small osteophyte and disk c omplex not causing central stenosis. Moderate to severe bilateral facet arthropathy is present. Unc overtebral hypertrophy causes severe bilateral foraminal stenosis. C6-7: Severe degenerative disk narrowing with extensive endplate degenerative cyst formation. Sma ll osteophyte and disk complex is present without central stenosis. Moderate to severe bilateral fa cet arthropathy is present. Uncovertebral hypertrophy contributes to moderate to severe bilateral fo raminal stenosis slightly worse on the left. C7-T1: Moderate degenerative disk narrowing without disk protrusion or central stenosis. Moderate t o severe bilateral facet arthropathy slightly worse on the left. The uncovertebral joints and forami na are unremarkable. The visualized thoracic levels: Moderate degenerative disk narrowing and endplate subcortical cyst formation at the T1-2 and T2-3 without disk abnormality of significance or obvious stenosis Non spine related findings: Severe centrilobular emphysema of the visualized upper lungs is present. Note is made of extensive arteriosclerotic calcification RPTAT:HJJR IMPRESSION: 1. Osteoporosis with scattered small areas of rounded lucency involving the vertebral bodies believ ed to reflect degenerative subcortical cystic changes because of the predominant location adjacent t o the disk spaces, lytic metastatic disease is a differential diagnostic possibility in the proper c linical setting. 2. No evidence of fracture or subluxation. 3. Multilevel degenerative disk disease most severe at C4-5, C5-6 and C6-7 without significant cent ral canal stenosis at any level. 4. Significant facet arthropathy and uncovertebral hypertrophy throughout the cervical spine with f oraminal stenosis greatest bilaterally at C5-6. Physician Thao Date Time Electronically viewed and signed by Physician Thao on 06/27/2016 22:53 /
--- NOTE | 2016-06-27 23:42 | RADRPT ---
PROCEDURE: XR Right Elbow. CLINICAL INDICATION: Right elbow pain status post trauma. TECHNIQUE: AP, lateral and oblique views of the right elbow performed. COMPARISON: None. FINDINGS: There is normal mineralization and alignment. No fracture or osseous lesion is identified. There is no significant joint space narrowing. The soft tissues are unremarkable. IMPRESSION: Unremarkable examination. RPTAT: [facility] Physician Shaji Date Time Electronically viewed and signed by Physician Shaji on 06/27/2016 23:42 RS/
--- NOTE | 2016-06-27 23:46 | RADRPT ---
PROCEDURE: XR Hip. CLINICAL INDICATION: Post traumatic right hip pain TECHNIQUE: AP and frog lateral views of the right hip were performed. COMPARISON: None. FINDINGS: Demineralization is suggested. No fracture or osseous lesion is identified. Moderate to severe narro wing of the right hip joint is present, the femoral head is normal in contour. The soft tissues are unremarkable. Atherosclerotic calcification of the femoral artery system is present. RPTAT:HJJR IMPRESSION: 1. Right hip osteoarthrosis without evidence of fracture or dislocation. 2. Demineralization. 3. Atherosclerotic calcification of the femoral artery system. Physician Thao Date Time Electronically viewed and signed by Physician Thao on 06/27/2016 23:46 /
[2016-06-28 03:30] VITALS: BP 138/64; PULSE 88; RESP 20; TEMP 97.6
== END 2016-06-28 03:31 | disposition home or self-care (01) ==
LOC: E/R 21:47
DX: S50.01XA Contusion of right elbow, initial encounter (principal); S51.011A Laceration without foreign body of right elbow, initial encounter; S70.01XA Contusion of right hip, initial encounter; I10 Essential (primary) hypertension; W18.39XA Other fall on same level, initial encounter; Y92.9 Unspecified place or not applicable; Z96.651 Presence of right artificial knee joint; Z23 Encounter for immunization; Z79.82 Long term (current) use of aspirin
CPT/HCPCS: 70450; 72125; 73510; 90471; 90715

== ENCOUNTER 2016-07-19 14:32 | Emergency (ER) | payer OTHER ==
[~2016-07-19] VITALS: Wt 72.0 kg
[~2016-07-19 14:32] MED LIST changes: -ACET-2047 PO; +ACET325T45 PO; -ALBU8.5H3 INH; -ALEN35TA23 PO; +ASPI-664 PO; -BUDE6HFA INHALATION; -CADE40GE TP; -CALC1TAB79 PO; -CARB15DR BOTH EYES; -DICL100G37 TOP; -DOCU-144 PO; -HYDR-3498 PO; -HYDR-902 PO; -POLY15DR30 BOTH EYES; -POT473SP TP
--- NOTE | 2016-07-19 15:45 | ERA ---
ER Documentation Chief Complaint Date/Time DATE: 07/19/16 TIME: 15:44 Chief Complaint fall HPI The patient is a 89-year-old male, presenting to the ER because he had a mechanical fall yesterday, he complains of head pain, neck pain, left shoulder pain, left hip pain, left knee. He denies syncope, near syncope, neck pain, chest pain, dyspnea, abdominal pain, vomiting, dysuria, diarrhea. He does not smoke or drink Past medical history: Hypertension, dyslipidemia Past surgical history: Appendectomy, right knee hemiarthroplasty ROS All systems reviewed and are negative except as per history of present illness. Medications Home Meds Active Scripts Cephalexin* (Keflex*) 500 Mg Capsule, 500 MG PO QID for 10 Days, CAP Prov:VANDANA RAYMOND MD 07/19/16 Reported Medications Psyllium Husk (PSYLLIUM SEED) 480 Gm Powder, 1 TBS PO BID 07/19/16 Albuterol Sulfate (Proair Respiclick) 90 Mcg Aer.pow.ba, 2 PUFFS INHALATION DAILY Y for PRN, BOTTLE 07/19/16 Alendronate Sodium* (Alendronate Sodium*) 35 Mg Tablet, 35 MG PO Q7D, #4 TAB 07/19/16 Dextran/Hypromellose/Glycerin (Artificial Tears Drops) 15 Ml Drops, 2 DROP BOTH EYES Q4H, EA 07/19/16 Budesonide-Formoterol Fumarate* (Symbicort*) 160-4.5 Hfa.aer.ad, 2 PUFF INHALATION BID, #1 EACH 07/19/16 Calcium Carbonate-Vitamin D3 (Calcium 500 + Vit D 200 Caplet) 1 Each Tablet, 2 TAB PO QAM, TAB 07/19/16 Clotrimazole* (Clotrimazole* AF) 1% - 30 Gm Cream.gm., 1 APPLIC TOP Q12H, TUB 07/19/16 Magnesium Hydroxide* (Milk Of Magnesia*) 400 Mg/5 Ml Oral.susp, 30 ML PO QHS, ML 07/19/16 Acetaminophen* (Acetaminophen*) 325 Mg Tablet, 650 MG PO TID Y for PAIN AND OR ELEVATED TEMP, #30 TAB 06/27/16 Vitamin B Complex* (Vitamin B Complex*) 1 Each Tablet, 1 TAB PO DAILY, TAB 02/23/16 Niacin* (Niacin*) 500 Mg Tablet, 2000 MG PO QPM, TAB 02/23/16 Multivitamins* (Theragran*) 1 Tab Tab, 1 TAB PO BID, TAB 02/23/16 Losartan Potassium* (Losartan Potassium*) 100 Mg Tablet, 100 MG PO DAILY, TAB 02/23/16 Gabapentin* (Gabapentin*) 300 Mg Capsule, 900 MG PO TID, #90 CAP 02/23/16 Folic Acid* (Folic Acid*) 1 Mg Tablet, 1 MG PO DAILY, TAB 02/23/16 Cholecalciferol* (Vitamin D*) 400 Unit Tablet, 800 UNIT PO Q24H, TAB 02/23/16 Atorvastatin* (Atorvastatin*) 40 Mg Tablet, 40 MG PO QHS, #30 TAB 02/23/16 Amlodipine Besylate* (Amlodipine Besylate*) 2.5 Mg Tablet, 2.5 MG PO DAILY, #30 TAB 02/23/16 Discontinued Reported Medications Aspirin (Aspirin) 81 Mg Tablet.dr, 81 MG PO DAILY 06/27/16 Aflibercept (EYLEA) 2 Mg/0.05 Ml Vial, 2 MG IO Q28 DAYS, VIAL 02/23/16 Allergies Allergies: Coded Allergies: No Known Allergy (Unverified , 07/19/16) PMhx/Soc History of Surgery: Yes (knee replacement, r. hip sx, appy, ) Anesthesia Reaction: No Hx Neurological Disorder: No Hx Respiratory Disorders: Yes (tb test +) Hx Cardiac Disorders: Yes (htn, high chol, ) Hx Psychiatric Problems: No Hx Miscellaneous Medical Probl: No Hx Alcohol Use: No Hx Substance Use: No Hx Tobacco Use: No Physical Exam Vitals Vital Signs Date Time Temp Pulse Resp B/P Pulse Ox O2 Delivery O2 Flow Rate FiO2 07/19/16 17:57 73 17 147/80 94 Room Air 07/19/16 15:47 98.3 67 17 116/51 97 Physical Exam Const: No acute distress. Head: Atraumatic. Old superficial laceration on the top of the head, no active bleeding Eyes: Normal Conjunctiva. ENT: Normal External Ears, Nose and Mouth. Neck: Full range of motion. No meningismus. Resp: Clear to auscultation bilaterally. Cardio: Regular rate and rhythm. Abd: Soft, non distended, normal bowel sounds, non tender. Skin: No petechiae or rashes. Back: No midline or flank tenderness. Ext: Vague and mild tenderness at the neck, left shoulder, left knee, left hip. No ecchymosis Neur: Awake and alert. No focal deficit Psych: Normal Mood and Affect. Result Diagram: 07/19/16 1610 07/19/16 1610 Results 24 hrs Laboratory Tests Test 07/19/16 16:10 White Blood Count 4.310^3/ul Red Blood Count 4.5110^6/ul Hemoglobin 13.7g/dl Hematocrit 42.5% Mean Corpuscular Volume 94.2fl Mean Corpuscular Hemoglobin 30.4pg Mean Corpuscular Hemoglobin Concent 32.2g/dl Red Cell Distribution Width 15.4% Platelet Count 03618^3/UL Mean Platelet Volume 8.8fl Neutrophils % 67.9% Lymphocytes % 17.1% Monocytes % 10.4% Eosinophils % 3.9% Basophils % 0.5% Nucleated Red Blood Cells % 0.0/100WBC Neutrophils # 3.010^3/ul Lymphocytes # 0.710^3/ul Monocytes # 0.510^3/ul Eosinophils # 0.210^3/ul Basophils # 0.010^3/ul Nucleated Red Blood Cells # 0.010^3/ul Prothrombin Time 13.3Sec Prothrombin Time Ratio 1.0 INR International Normalized Ratio 1.01 Activated Partial Thromboplast Time 32.4Sec Sodium Level 141mmol/L Potassium Level 4.2mmol/L Chloride Level 106mmol/L Carbon Dioxide Level 28mmol/L Anion Gap 11 Blood Urea Nitrogen 35mg/dl Creatinine 1.12mg/dl Glucose Level 125mg/dl Calcium Level 9.1mg/dl Current Medications Medications (Trade) Dose Ordered Sig/Alireza Route PRN Reason Start Time Stop Time Status Last Admin Dose Admin Diphtheria/ Tetanus/Acell Pertussis 0.5 ml 0.5 ml ONCE ONCE IM* 07/19/16 16:00 07/19/16 16:01 DC 07/19/16 16:24 Sodium Chloride (NS) 500 ml @ 500 mls/hr Q1H ONCE IV 07/19/16 18:00 07/19/16 18:59 07/19/16 17:52 Procedures/[place] [id number] Radiology Main Line: [phone] DIAGNOSTIC IMAGING REPORT Patient: JANICE EAGLE : 1925 Age: 89 Sex: M MR #: [id number] DOS: 07/19/16 1550 Ordering MD: VANDANA RAYMOND MD Location: E/R Room/Bed: PROCEDURE: XR Shoulder. CLINICAL INDICATION: Shoulder pain TECHNIQUE: 2 views the left shoulder are available for review. COMPARISON: None available FINDINGS: Severe narrowing is noted at the glenohumeral joint with superior migration of the humeral head. There is resection of the distal clavicle with small ossicles at the margins. No acute osseous abnormality. The osseous structures appear demineralized. The visualized portions of the left lung are clear. IMPRESSION: 1. Severe rotator cuff arthropathy. 2. No acute osseous abnormality. 3. Effects of prior distal clavicular resection. RPTAT: EE .Renato Martínez MD, MD Date Time Electronically viewed and signed by .Renato Martínez MD, MD on 07/19/2016 17:16 .d/ CC: VANDANA RAYMOND MD [place] [id number] Radiology Main Line: [phone] DIAGNOSTIC IMAGING REPORT Patient: JANICE EAGLE : 1925 Age: 89 Sex: M MR #: [id number] DOS: 07/19/16 1550 Ordering MD: VANDANA RAYMOND MD Location: E/R Room/Bed: PROCEDURE: XR Knee. CLINICAL INDICATION: Left knee pain TECHNIQUE: 3 views of the left knee are available for review. COMPARISON: None available FINDINGS: Severe narrowing is noted at all 3 compartments with subchondral sclerosis and marginal osteophyte formation. No acute osseous abnormality is seen. No evidence for fracture. Joint effusion is present. Intrarticular bodies are present posteriorly and at the supra patellar recess. Atherosclerotic vascular calcifications are seen. An osseous body is present at the posterior joint line , possibly within a popliteal cyst or other soft tissue structure. Chondrocalcinosis seen. IMPRESSION: 1. Severe tricompartmental knee arthrosis. 2. No radiographic evidence for fracture. 3. Joint effusion and intrarticular ossific/calcific bodies. RPTAT: EE .Renato Martínez MD, MD Date Time Electronically viewed and signed by .Renato Martínez MD, MD on 07/19/2016 17:18 .d/ CC: VANDANA RAYMOND MD [place] [address] Radiology Main Line: [phone] DIAGNOSTIC IMAGING REPORT Patient: JANICE EAGLE : 1925 Age: 89 Sex: M MR #: [id number] DOS: 07/19/16 1550 Ordering MD: VANDANA RAYMOND MD Location: E/R Room/Bed: PROCEDURE: XR left Hip. CLINICAL INDICATION: Hip pain TECHNIQUE: AP and frog lateral views of the left hip were performed. COMPARISON: None. FINDINGS: There is no acute osseous abnormality or evidence of fracture. The osseous structures appear demineralized. Moderate to severe left hip arthrosis is present noting moderate to severe nonuniform narrowing and marginal osteophyte formation. Symphysis pubis degeneration is seen. The sacrum is obscured by bowel gas. Atherosclerotic vascular calcifications are present. IMPRESSION: 1. Decreased bone mineral density without radiographic evidence for fracture. Please note that MRI is more sensitive in evaluating for a nondisplaced fractures in this setting. 2. Moderate to severe left hip arthrosis. RPTAT: EE .Renato Martínez MD, MD Date Time Electronically viewed and signed by .Renato Martínez MD, MD on 07/19/2016 17:17 .d/ CC: VANDANA RAYMOND MD [place] [address] Radiology Main Line: [phone] DIAGNOSTIC IMAGING REPORT Patient: JANICE EAGLE : 1925 Age: 89 Sex: M MR #: [id number] DOS: 07/19/16 1550 Ordering MD: VANDANA RAYMOND MD Location: E/R Room/Bed: PROCEDURE: CT Cervical Spine without contrast. CLINICAL INDICATION: Neck pain. TECHNIQUE: A CT of the cervical spine was performed on a [employer] CT scanner utilizing thin section axial images from the skull base through the thoracic inlet. Sagittal and coronal reformatted images were made. The CTDIvol is 22.2 mGy and the DLP is 479 mGycm. COMPARISON: CT scan of the cervical spine 06/27/2016. FINDINGS: There is a normal cervical lordosis. There are vascular calcifications in the distal left vertebral artery. The base of the skull is intact. There is calcification and hypertrophy of the transverse ligament dorsal to the odontoid of C2. There is narrowing of the atlanto-axial joint. This finding is unchanged. No vertebral body subluxation is seen. No fracture is evident. C2-3: There is dorsal disk space narrowing. The left nerve root canal is patent. The right nerve root canal is patent. No significant disk bulge or protrusion is evident. There are degenerative changes in the articular facets. No acute fracture is identified. C3 is intact. C3-4: There is generalized disk space narrowing with ventral and dorsal spondylosis. There is a 3.5 mm AP left lateral disk osteophyte complex. There is a small right lateral disk osteophyte complex. These are unchanged. No significant disk bulge or protrusion is evident. There is a stable right bony nerve root canal stenosis secondary to degenerative changes in the right articular facets. The left nerve root canal is only mildly narrowed. C4-5: There is 2.3 mm of anterolisthesis of C4-C5. This is unchanged. There is a 3.8 mm bone cyst along the dorsal super endplate of C5 which is stable. No significant disk bulge or protrusion is evident. No central canal or and nerve root canal stenosis is present. There are degenerative changes in the facets bilaterally which are stable. These changes are more pronounced on the right than left. C5-6: There is disk space narrowing with ventral and dorsal spondylosis. No significant disk bulge or protrusion is evident. There are bilateral bony nerve root canal stenosis with severe degenerative changes in the articular facets at C5-6. No central canal stenosis is identified. These findings are unchanged. The C6 vertebra is intact. There is a 2.7 mm AP central and paracentral dorsal disk osteophyte complex. The C6 vertebral body is intact. There is calcification in the ligamentum nuchae at the level of the C6 spinous process. C6-7: There is generalized disk space narrowing and ventral spondylosis. There is a 3.1 mm AP central dorsal disk osteophyte complex No disk bulge or herniation is identified. There are degenerative changes in the articular facets with bilateral bony nerve root canal stenoses. These are unchanged. C7 is intact. C7-T1: There is generalized disk space narrowing with ventral spondylosis. per there is no evidence of a disk bulge or herniation. The neural canal remains normal in size. No central canal or nerve root canal stenosis is present. T1 is intact. The other visible thoracic vertebra are intact. There are ventral osteophytes at T1-2, T2-3, T3-4 and T4-5. Additional findings: There are vascular calcifications in the great vessels of the superior mediastinum. There is central lobular emphysema involving the upper lung gilbert. There are vascular calcifications in the right and left carotid bulbs with no significant vascular stenosis is identified. IMPRESSION: 1. Overall, no significant changes noted when compared to the prior CT scan of the neck dated 06/27/2016. 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 2. Stable subcortical degenerative cystic changes at the superior plate of C5, inferior endplate of C6 and inferior endplate of T1 and T2. 3. 2.3 mm of anterolisthesis of C4-C5 attributed to ligamentous laxity from osteoarthritis. This finding is unchanged. 4. Right bony nerve root canal stenosis at C3-4, bilateral bony nerve root canal stenosis at C5-6 and C6-7. 5. Hypertrophy and calcification of the transverse ligament. 6. Central lobular pulmonary emphysema. 6. Extensive atherosclerotic vascular disease. RPTAT:AAJJ Physician Machelle Date Time Electronically viewed and signed by Constantino Downs Physician on 07/19/2016 16:37 JM/ CC: VANDANA RAYMOND MD [place] [address] Radiology Main Line: [phone] DIAGNOSTIC IMAGING REPORT Patient: JANICE EAGLE : 1925 Age: 89 Sex: M MR #: [id number] DOS: 07/19/16 1550 Ordering MD: VANDANA RAYMOND MD Location: E/R Room/Bed: PROCEDURE: CT brain without contrast CLINICAL INDICATION: Fall, headache TECHNIQUE: CT of the brain without contrast performed on a multidetector CT scanner. One or more of the following dose reduction techniques were used: Automated exposure control, adjustment in mA and / or kV according to patient size, use of iterative reconstructive technique. CTDIvol = 45 mGy; DLP = 720 mGy-cm. COMPARISON: None available FINDINGS: No acute intracranial hemorrhage is identified. No extra-axial fluid collection is seen. There is no mass effect. No midline shift is identified. Ventricles and sulci are mild to moderately enlarged compatible with volume loss. There are mild areas of hypodensity in the periventricular - deep white matter which are nonspecific but suggestive of chronic small vessel ischemic changes. Dobbins-white differentiation is preserved. Atherosclerotic calcifications of the proximal intracranial arteries are noted. Osseous structures are unremarkable. Mastoid air cells and imaged paranasal sinuses grossly clear. IMPRESSION: 1. No evidence of acute intracranial pathology. 2. Mild - moderate volume loss, with mild chronic small vessel ischemic changes. RPTAT: AA .Kurt Lopes MD, Date Time Electronically viewed and signed by .Kurt Lopes MD, MD on 07/19/2016 16:16 .O/ CC: VANDANA RAYMOND MD MEDICAL MAKING DECISION: The patient is a 89-year-old male, presenting mechanical fall, acute dehydration, acute neck pain, acute left shoulder pain, acute left hip pain, acute left knee pain. He was treated with Tdap IM, normal saline 500 mL IV for dehydration with good response. The scalp laceration was cleaned with normal saline and dressed with bacitracin The differential diagnoses considered include but are not limited to fracture, contusion, sprain, internal derangement Departure Diagnosis: Primary Impression: Fall with no significant injury Additional Impressions: Scalp laceration Dehydration Anemia Leukocytosis Condition: Good Comments I discussed the findings with the patient. I advised the patient to follow-up with the primary physician in about 1-2 days, sooner if needed and return if any concern. VANDANA RAYMOND MD Jul 19, 2016 15:45
[2016-07-19] MEDS ORDERED: DIPHTH/TET/ACEL PERTUSS (ADULT) 0.5 ML VIAL IM* ONE (16:00)
--- NOTE | 2016-07-19 16:16 | RADRPT ---
PROCEDURE: CT brain without contrast CLINICAL INDICATION: Fall, headache TECHNIQUE: CT of the brain without contrast performed on a multidetector CT scanner. One or more o f the following dose reduction techniques were used: Automated exposure control, adjustment in mA an d / or kV according to patient size, use of iterative reconstructive technique. CTDIvol = 45 mGy; D LP = 720 mGy-cm. COMPARISON: None available FINDINGS: No acute intracranial hemorrhage is identified. No extra-axial fluid collection is seen. There is no mass effect. No midline shift is identified. Ventricles and sulci are mild to moderately enlarged compatible with volume loss. There are mild areas of hypodensity in the periventricular - deep white matter which are nonspecific but suggestive of chronic small vessel ischemic changes. Dobbins-white differentiation is preserved. Atherosclerotic calcifications of the proximal intracranial arteries are noted. Osseous structures are unremarkable. Mastoid air cells and imaged paranasal sinuses grossly clear. IMPRESSION: 1. No evidence of acute intracranial pathology. 2. Mild - moderate volume loss, with mild chronic small vessel ischemic changes. RPTAT: AA .Kurt Lopes MD, MD Date Time Electronically viewed and signed by .Kurt Lopes MD, MD on 07/19/2016 16:16 .O/
[2016-07-19 16:26] LABS: ADD SCAN DIFF NO
[2016-07-19 16:30] LABS: BASOPHILS % 0.5 % (0.0-2.0); EOSINOPHILS # 0.2 10^3/ul (0.0-0.5); EOSINOPHILS % 3.9 % (0.0-7.0); HEMATOCRIT 42.5 % (42.0-52.0); HEMOGLOBIN 13.7 g/dl (14.0-18.0); LYMPHOCYTES # 0.7 10^3/ul (0.8-2.9); LYMPHOCYTES % 17.1 % (15.0-51.0); MEAN CORPUSCULAR HEMOGLOBIN 30.4 pg (29.0-33.0); MEAN CORPUSCULAR HGB CONC 32.2 g/dl (32.0-37.0); MEAN CORPUSCULAR VOLUME 94.2 fl (82.0-101.0); MEAN PLATELET VOLUME 8.8 fl (7.4-10.4); MONOCYTE # 0.5 10^3/ul (0.3-0.9); MONOCYTES % 10.4 % (0.0-11.0); NEUTROPHILS % 67.9 % (39.0-77.0); PLATELET COUNT 178 10^3/UL (140-415); RED BLOOD COUNT 4.51 10^6/ul (4.70-6.10); RED CELL DISTRIBUTION WIDTH 15.4 % (11.5-14.5); WHITE BLOOD COUNT 4.3 10^3/ul (4.8-10.8)
--- NOTE | 2016-07-19 16:37 | RADRPT ---
PROCEDURE: CT Cervical Spine without contrast. CLINICAL INDICATION: Neck pain. TECHNIQUE: A CT of the cervical spine was performed on a [employer] CT scanne r utilizing thin section axial images from the skull base through the thoracic inlet. Sagittal and coronal reformatted images were made. The CTDIvol is 22.2 mGy and the DLP is 479 mGycm. COMPARISON: CT scan of the cervical spine 06/27/2016. FINDINGS: There is a normal cervical lordosis. There are vascular calcifications in the distal left vertebral artery. The base of the skull is intact. There is calcification and hypertrophy of the transverse ligament dorsal to the odontoid of C2. There is narrowing of the atlanto-axial joint. This findin g is unchanged. No vertebral body subluxation is seen. No fracture is evident. C2-3: There is dorsal disk space narrowing. The left nerve root canal is patent. The right nerve r oot canal is patent. No significant disk bulge or protrusion is evident. There are degenerative amos ges in the articular facets. No acute fracture is identified. C3 is intact. C3-4: There is generalized disk space narrowing with ventral and dorsal spondylosis. There is a 3.5 mm AP left lateral disk osteophyte complex. There is a small right lateral disk osteophyte complex . These are unchanged. No significant disk bulge or protrusion is evident. There is a stable right bony nerve root canal stenosis secondary to degenerative changes in the right articular facets. The left nerve root canal is only mildly narrowed. C4-5: There is 2.3 mm of anterolisthesis of C4-C5. This is unchanged. There is a 3.8 mm bone cyst a long the dorsal super endplate of C5 which is stable. No significant disk bulge or protrusion is dona dent. No central canal or and nerve root canal stenosis is present. There are degenerative changes in the facets bilaterally which are stable. These changes are more pronounced on the right than left . C5-6: There is disk space narrowing with ventral and dorsal spondylosis. No significant disk bulge o r protrusion is evident. There are bilateral bony nerve root canal stenosis with severe degenerative changes in the articular facets at C5-6. No central canal stenosis is identified. These findings are unchanged. The C6 vertebra is intact. There is a 2.7 mm AP central and paracentral dorsal disk osteophyte complex. The C6 vertebral body is intact. There is calcification in the ligamentum nucha e at the level of the C6 spinous process. C6-7: There is generalized disk space narrowing and ventral spondylosis. There is a 3.1 mm AP centr al dorsal disk osteophyte complex No disk bulge or herniation is identified. There are degenerative changes in the articular facets with bilateral bony nerve root canal stenoses. These are unchanged. C7 is intact. C7-T1: There is generalized disk space narrowing with ventral spondylosis. per there is no evidenc e of a disk bulge or herniation. The neural canal remains normal in size. No central canal or nerve root canal stenosis is present. T1 is intact. The other visible thoracic vertebra are intact. Th ere are ventral osteophytes at T1-2, T2-3, T3-4 and T4-5. Additional findings: There are vascular calcifications in the great vessels of the superior mediast inum. There is central lobular emphysema involving the upper lung gilbert. There are vascular calci fications in the right and left carotid bulbs with no significant vascular stenosis is identified. IMPRESSION: 1. Overall, no significant changes noted when compared to the prior CT scan of the neck dated 06/27. 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 2. Stable subcortical degenerative cystic changes at the superior plate of C5, inferior endplate of C6 and inferior endplate of T1 and T2. 3. 2.3 mm of anterolisthesis of C4-C5 attributed to ligamentous laxity from osteoarthritis. This f inding is unchanged. 4. Right bony nerve root canal stenosis at C3-4, bilateral bony nerve root canal stenosis at C5-6 a nd C6-7. 5. Hypertrophy and calcification of the transverse ligament. 6. Central lobular pulmonary emphysema. 6. Extensive atherosclerotic vascular disease. RPTAT:AAJJ Physician Machelle Date Time Electronically viewed and signed by Physician Machelle on 07/19/2016 16:37 MADY/
[2016-07-19 16:49] LABS: INR 1.01; PROTIME 13.3 Sec (12.2-14.2)
[2016-07-19 16:50] LABS: CALCIUM 9.1 mg/dl (8.4-10.2); CREATININE 1.12 mg/dl (0.61-1.24); PARTIAL THROMBOPLASTIN TIME 32.4 Sec (25.0-35.0); POTASSIUM 4.2 mmol/L (3.5-5.1)
--- NOTE | 2016-07-19 17:16 | RADRPT ---
PROCEDURE: XR Shoulder. CLINICAL INDICATION: Shoulder pain TECHNIQUE: 2 views the left shoulder are available for review. COMPARISON: None available FINDINGS: Severe narrowing is noted at the glenohumeral joint with superior migration of the humeral head. Th ere is resection of the distal clavicle with small ossicles at the margins. No acute osseous abnorma lity. The osseous structures appear demineralized. The visualized portions of the left lung are chester ar. IMPRESSION: 1. Severe rotator cuff arthropathy. 2. No acute osseous abnormality. 3. Effects of prior distal clavicular resection. RPTAT: EE .Renato Martínez MD, MD Date Time Electronically viewed and signed by .Renato Martínez MD, on 07/19/2016 17:16 .d/
--- NOTE | 2016-07-19 17:17 | RADRPT ---
PROCEDURE: XR left Hip. CLINICAL INDICATION: Hip pain TECHNIQUE: AP and frog lateral views of the left hip were performed. COMPARISON: None. FINDINGS: There is no acute osseous abnormality or evidence of fracture. The osseous structures appear demine ralized. Moderate to severe left hip arthrosis is present noting moderate to severe nonuniform narr owing and marginal osteophyte formation. Symphysis pubis degeneration is seen. The sacrum is obscu red by bowel gas. Atherosclerotic vascular calcifications are present. IMPRESSION: 1. Decreased bone mineral density without radiographic evidence for fracture. Please note that MRI is more sensitive in evaluating for a nondisplaced fractures in this setting. 2. Moderate to severe left hip arthrosis. RPTAT: EE .Renato Martínez MD, Date Time Electronically viewed and signed by .Renato Martínez MD, on 07/19/2016 17:17 .d/
--- NOTE | 2016-07-19 17:19 | RADRPT ---
PROCEDURE: XR Knee. CLINICAL INDICATION: Left knee pain TECHNIQUE: 3 views of the left knee are available for review. COMPARISON: None available FINDINGS: Severe narrowing is noted at all 3 compartments with subchondral sclerosis and marginal osteophyte f ormation. No acute osseous abnormality is seen. No evidence for fracture. Joint effusion is prese nt. Intrarticular bodies are present posteriorly and at the supra patellar recess. Atherosclerotic vascular calcifications are seen. An osseous body is present at the posterior joint line, possibly within a popliteal cyst or other soft tissue structure. Chondrocalcinosis seen. IMPRESSION: 1. Severe tricompartmental knee arthrosis. 2. No radiographic evidence for fracture. 3. Joint effusion and intrarticular ossific/calcific bodies. RPTAT: EE .Renato Martínez MD, MD Date Time Electronically viewed and signed by .Renato Martínez MD, MD on 07/19/2016 17:18 .d/
[2016-07-19] MEDS ORDERED: MAGN400O4 PO (17:27)
[2016-07-19] MEDS ORDERED: CLOT30CR24 TOP (17:29)
[2016-07-19] MEDS ORDERED: CALC-72 PO (17:30)
[2016-07-19] MEDS ORDERED: BUDE6HFA INHALATION (17:32)
[2016-07-19] MEDS ORDERED: DEXT15DR2 BOTH EYES (17:35)
[2016-07-19] MEDS ORDERED: ALEN35TA23 PO (17:36)
[2016-07-19] MEDS ORDERED: ALBU90AE INHALATION (17:37)
[2016-07-19] MEDS ORDERED: PSYL480P PO (17:41)
[2016-07-19] MEDS ORDERED: SOD CHLORIDE 0.9% 500 ML IV ONE (18:00)
[2016-07-19] MEDS ORDERED: CEPH-443 PO (18:17)
[2016-07-19 21:12] VITALS: BP 125/56; PULSE 60; RESP 16; TEMP 98.3
== END 2016-07-19 21:38 | disposition home or self-care (01) ==
LOC: E/R 14:32
DX: S01.01XA Laceration without foreign body of scalp, initial encounter (principal); E86.0 Dehydration; D64.9 Anemia, unspecified; D72.829 Elevated white blood cell count, unspecified; I10 Essential (primary) hypertension; R07.9 Chest pain, unspecified; W18.39XA Other fall on same level, initial encounter; Y92.9 Unspecified place or not applicable; Z79.82 Long term (current) use of aspirin; Z96.659 Presence of unspecified artificial knee joint
CPT/HCPCS: 36415; 70450; 72125; 73030; 73510; 73560; 80048; 85025; 85610; 85730; 90471; 90715; 99285; J7040